=== PATIENT | female | born 1930 | race Caucasian/White ===

== ENCOUNTER → 2017-04-14 | Outpatient (CLI) | payer OTHER ==
[~2017-04-14] MED LIST: B-COCAP2 PO; DABI1CAP PO; ISOS60TA25 PO; LNX125 PO; LORA-741 PO; LSN5 PO; LSX40 PO; METO50TA16 PO; MTHH1 PO; MULT-506 PO; NTRGSL/4 UT; NXM/40 PO; ONDA4TAB10 PO; SLWMEC PO
[2017-04-14 18:14] LABS: BASO % 0.7 %; BASO ABS # 0.04 K/uL (0-0.2); COMPLETE YES; EOS % 1.6 %; HEMATOCRIT 28.8 % (37-47); IG% 0.5 %; LYMPH % 23.6 %; LYMPH ABS # 1.31 K/uL (1.2-3.4); MEAN CORPUSCULAR HEMOGLOBIN 24.3 pg (25-34); MEAN CORPUSCULAR HGB CONC 31.6 g/dl (32-36); MEAN PLATELET VOLUME 10.2 fL (7.4-10.4); MONO % 15.1 %; NEUT % 58.5 %; PLATELET COUNT 219 K/uL (130-400); RED BLOOD COUNT 3.74 M/uL (4.2-5.4); WHITE BLOOD COUNT 5.56 K/uL (4.8-10.8)
[2017-04-14 18:22] LABS: ALT/SGPT 17 U/L (12-78); BLOOD UREA NITROGEN 28 mg/dl (7-18); BUN/CREATININE RATIO 23.6 (10-20); CALCIUM 8.5 mg/dl (8.5-10.1); CARBON DIOXIDE 25 mmol/L (21-32); CHLORIDE 106 mmol/L (98-107); GLUCOSE 78 mg/dl (70-99); MAGNESIUM 1.3 mg/dl (1.8-2.4); POTASSIUM 3.8 mmol/L (3.5-5.1); SODIUM 140 mmol/L (136-145)
[2017-04-14 18:33] LABS: ALB/GLOB RATIO 0.7 (0.9-2); ALKALINE PHOSPHATASE 65 U/L (45-117); AST/SGOT 25 U/L (15-37)
== END | disposition home or self-care (01) ==
LOC: C.LABSPEC 17:46
PROVIDERS: ATTEND Internal Medicine
DX: I25.10 Atherosclerotic heart disease of native coronary artery without angina pectoris (principal); R63.4 Abnormal weight loss; R53.83 Other fatigue

== ENCOUNTER → 2017-07-16 | Outpatient (CLI) | payer OTHER ==
[2017-07-16 15:17] LABS: BASO % 0.5 %; BASO ABS # 0.03 K/uL (0-0.2); COMPLETE YES; EOS % 1.4 %; HEMATOCRIT 31.7 % (37-47); IG% 0.7 %; LYMPH % 25.2 %; LYMPH ABS # 1.45 K/uL (1.2-3.4); MEAN CELL VOLUME 78.5 fL (80-100); MEAN CORPUSCULAR HGB CONC 30.6 g/dl (32-36); MEAN PLATELET VOLUME 9.6 fL (7.4-10.4); NEUT % 61.2 %; PLATELET COUNT 210 K/uL (130-400); RED BLOOD COUNT 4.04 M/uL (4.2-5.4); WHITE BLOOD COUNT 5.75 K/uL (4.8-10.8)
[2017-07-16 15:23] LABS: BLOOD UREA NITROGEN 28 mg/dl (7-18); BUN/CREATININE RATIO 24.3 (10-20); CALCIUM 8.8 mg/dl (8.5-10.1); CARBON DIOXIDE 23 mmol/L (21-32); CHLORIDE 108 mmol/L (98-107); CREATININE 1.14 mg/dl (0.60-1.20); GLUCOSE 82 mg/dl (70-99); SODIUM 140 mmol/L (136-145)
== END | disposition home or self-care (01) ==
LOC: C.LABSPEC 14:50
PROVIDERS: ATTEND Internal Medicine
DX: I48.0 Paroxysmal atrial fibrillation (principal); I25.10 Atherosclerotic heart disease of native coronary artery without angina pectoris; D64.9 Anemia, unspecified

== ENCOUNTER 2017-07-23 14:11 | Emergency (ER) | payer OTHER ==
[~2017-07-23] VITALS: Ht 152.4 cm; Wt 55.0 kg
[2017-07-23 14:13] VITALS: TEMP 36.3; Ht 152.4 cm; Wt 55.0 kg
--- NOTE | 2017-07-23 14:54 | EMERGENCY ROOM VISIT NOTE ---
History Report prepared by Everardo: Yamileth Jean Baptiste Under the Supervision of: Dr. Howard Gabriel M.D. First contact with patient: 14:19 Chief Complaint: EAR PAIN Stated Complaint: R SIDE EXTREME EAR PAIN AND FACE History of Present Illness The patient is a 86 year old female who presents to the Emergency Room with complaints of intermittent right jaw pain for the past 6 months that worsened today. Her pain radiates into her right ear and down her right jaw. She reports "piercing" pain in her right ear. Family notes that she has had this pain for about 6 months. She has an appointment with her dentist next week because she thought her pain was due to dental pain. She recently saw her PCP for these symptoms and had a negative work-up at that time. The patient reports pain with chewing and opening her jaw. She denies fever, visual changes, recent injuries, chest pain, shortness of breath, headache, and any broken teeth. She is on Coumadin. Source of History: patient, family Onset: 6 months ago Position: jaw Quality: other (piercing) Timing: intermittent, worsening Modifying Factors (Worsening): other (chewing, opening jaw) Associated Symptoms: No fevers, No headache, No chest pain, No SOB Note: Pt has pain in right ear. Review of Systems See HPI for pertinent positives & negatives. A total of 10 systems reviewed and were otherwise negative. 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 Nurse's notes were reviewed and I agree with. Family History Diabetes mellitus FH: heart disease Social History Smoking Status: Former Smoker Alcohol Use: none Drug Use: none Marital Status: Housing Status: lives alone Occupation Status: retired Current/Historical Medications Scheduled B-Complex Vitamins (Vitamin B Complex), 1 TAB PO DAILY Dabigatran Etexilate Mesylate (Pradaxa), 75 MG PO BID Digoxin (Digoxin), 0.125 MG PO MWF Furosemide (Furosemide), 40 MG PO DAILY Isosorbide Mononitrate Ext Rel (Imdur Ext Rel), 90 MG PO DAILY Lisinopril (Lisinopril), 5 MG PO DAILY Lorazepam (Ativan), 0.5 MG PO UD Magnesium Chloride (Slow-Mag Tab), 192 MG PO BID Methenamine Hippurate (Methenamine Hippurate), 1 MG PO BID Metoprolol Tartrate (Lopressor) (Lopressor), 50 MG PO BID Multivitamin (Multivitamin), 1 TABLET PO DAILY Omeprazole (Prilosec), 40 MG PO DAILY Scheduled PRN Nitroglycerin (Nitrostat), 0.4 MG UT UD PRN for Chest Pain Allergies Coded Allergies: Amoxicillin (Verified Allergy, Intermediate, RASH, 07/23/17) TOLERATED ERTAPENEM 08/2015 Sulfa Antibiotics (Verified Allergy, Unknown, unknown, 07/23/17) Homatropine (Verified Adverse Reaction, Mild, NAUSEA, 07/23/17) Hydrocodone (Verified Adverse Reaction, Mild, NAUSEA, 07/23/17) Morphine (Verified Adverse Reaction, Mild, RXN = SIGNIFICANT MS CHANGE WHEN GIVEN WITH PHENERGAN, 07/23/17) PATIENT STATES SHE CAN TAKE MORPHINE LONG NOT COMBINED WITH PHENERGAN. Promethazine (Verified Adverse Reaction, Mild, RXN = SIGNIFICANT MS CHANGES WHEN GIVEN WITH MORPHINE, 07/23/17) SIGNIFICANT MENTAL STATUS CHANGES Lorazepam (Verified Adverse Reaction, Unknown, hallucinations if exceeds prescribed dosage, 07/23/17) Physical Exam Vital Signs Date Time Temp Pulse Resp B/P (MAP) Pulse Ox O2 Delivery O2 Flow Rate FiO2 07/23/17 16:45 65 18 98/52 97 07/23/17 16:15 65 18 98/52 97 Room Air 07/23/17 14:13 36.3 109 18 91/56 97 Room Air Physical Exam General: Non-ill appearing older female in no acute distress. HEENT: Normal cephalic atraumatic. Pupils are equal round and reactive to light. Extraocular movements are intact. Oropharynx is pink with moist mucous membranes. poor dentition, no teeth in the right lower jaw, right upper jaw with a partial plate, no swelling or fluctuance. Mild tenderness to palpation along the angle of the right jaw. No swelling of the mouth lips or tongue. Neck: Supple with a midline trachea. No meningeal signs or stiffness, no JVD or bruits. No Stridor. Chest: Clear to auscultation bilaterally. No wheezes or rhonchi. No increased work of breathing. Heart: regular rate and rhythm. Abdomen: Soft nontender, nondistended without rebound guarding or rigidity. Extremities: No cyanosis clubbing or edema. No calf tenderness or assymetry Spine/Back. Non tender to palpation. No CVA tenderness Skin: Good turgor without rashes. Neurologic exam: Cranial nerves two through 12 are intact. Motor and sensation are intact and symmetrical throughout. Medical Decision & Procedures ER Provider Diagnostic Interpretation: Radiology results as stated below per my review and radiologist interpretation: CT SOFT TISSUE NECK WITH CT DOSE: 161.63 mGy.cm CLINICAL HISTORY: Neck pain. Possible parotid gland abscess. TECHNIQUE: Helical images were acquired during intravenous administration of 72 cc of Optiray 320. A dose lowering technique was utilized adhering to the principles of ALARA. COMPARISON STUDY: None. FINDINGS: The visualized portions of the lung apices reveal tree-in-bud opacities within the left apex, likely inflammatory/postinflammatory. There are areas of apical interstitial scarring. No thyroid masses are visualized. No salivary gland masses are visualized. There are no pathologically enlarged cervical lymph nodes. No necrotic nodes are evident. There are no fluid collections suspicious for abscess. There is no evidence of airway compromise. No mucosal space masses are visualized. Multiple dental caries are visualized. There is atherosclerotic carotid disease IMPRESSION: 1. No evidence of pathologic adenopathy 2. No evidence of abscess 3. No evidence of airway compromise Electronically signed by: Jonathan Granados M.D. 07/23/2017 3:56 PM Dictated Date/Time: 07/23/2017 3:51 PM Laboratory Results 07/23/17 15:08 Red Blood Count 4.73, Mean Corpuscular Volume 78.2, Mean Corpuscular Hemoglobin 25.4, Mean Corpuscular Hemoglobin Concent 32.4, Mean Platelet Volume 9.7, Neutrophils (%) (Auto) 69.4, Lymphocytes (%) (Auto) 22.3, Monocytes (%) (Auto) 6.3, Eosinophils (%) (Auto) 0.8, Basophils (%) (Auto) 0.6, Neutrophils # (Auto) 4.30, Lymphocytes # (Auto) 1.38, Monocytes # (Auto) 0.39, Eosinophils # (Auto) 0.05, Basophils # (Auto) 0.04 07/23/17 15:08 07/23/17 16:13 Test 07/23/17 15:08 07/23/17 15:15 07/23/17 16:13 White Blood Count 6.20 K/uL (4.8-10.8) Red Blood Count 4.73 M/uL (4.2-5.4) Hemoglobin 12.0 g/dL (12.0-16.0) Hematocrit 37.0 % (37-47) Mean Corpuscular Volume 78.2 fL (80-100) Mean Corpuscular Hemoglobin 25.4 pg (25-34) Mean Corpuscular Hemoglobin Concent 32.4 g/dl (32-36) Platelet Count 238 K/uL (130-400) Mean Platelet Volume 9.7 fL (7.4-10.4) Neutrophils (%) (Auto) 69.4 % Lymphocytes (%) (Auto) 22.3 % Monocytes (%) (Auto) 6.3 % Eosinophils (%) (Auto) 0.8 % Basophils (%) (Auto) 0.6 % Neutrophils # (Auto) 4.30 K/uL (1.4-6.5) Lymphocytes # (Auto) 1.38 K/uL (1.2-3.4) Monocytes # (Auto) 0.39 K/uL (0.11-0.59) Eosinophils # (Auto) 0.05 K/uL (0-0.5) Basophils # (Auto) 0.04 K/uL (0-0.2) RDW Standard Deviation 47.4 fL (36.4-46.3) RDW Coefficient of Variation 16.5 % (11.5-14.5) Immature Granulocyte % (Auto) 0.6 % Immature Granulocyte # (Auto) 0.04 K/uL (0.00-0.02) Prothrombin Time 16.0 SECONDS (9.0-12.0) Prothromb Time International Ratio 1.5 (0.9-1.1) Activated Partial Thromboplast Time 65.3 SECONDS (21.0-31.0) Partial Thromboplastin Ratio 2.5 Est Creatinine Clear Calc Drug Dose 18.5 ml/min Estimated GFR () 31.6 Estimated GFR (Non- 27.2 BUN/Creatinine Ratio 21.7 (10-20) Calcium Level 9.4 mg/dl (8.5-10.1) Total Bilirubin 0.4 mg/dl (0.2-1) Alanine Aminotransferase (ALT/SGPT) 20 U/L (12-78) Alkaline Phosphatase 80 U/L (45-117) Troponin I < 0.015 ng/ml (0-0.045) Total Protein 9.1 gm/dl (6.4-8.2) Albumin 3.7 gm/dl (3.4-5.0) Lipase 411 U/L (73-393) Bedside Hemoglobin 13.6 g/dl (12.0-16.0) Bedside Hematocrit 40 % (37-47) Bedside Sodium 140 mEq/L (135-144) Bedside Potassium 4.6 mEq/L (3.3-5.0) Bedside Chloride 108 mEq/L (101-112) Bedside Total CO2 25 mEq/l (24-31) Anion Gap 13.0 mmol/L (16-25) Bedside Blood Urea Nitrogen 42 mg/dl (7-18) Bedside Creatinine 1.6 mg/dl (0.6-1.3) Bedside Glucose (other) 91 mg/dl (70-99) Bedside Ionized Calcium (Gume) 1.13 mmol/l (1.12-1.32) Direct Bilirubin < 0.1 mg/dl (0-0.2) Aspartate Amino Transf (AST/SGOT) 20 U/L (15-37) Laboratory studies as stated above per my review. ECG Indication: other Rate (beats per minute): 61 Rhythm: atrial fibrillation Findings: nonspecific-ST abn, left axis deviation Comparison ECG Date: 05/15/2016 Change: Rate has decreased otherwise no changes. ED Course 1419: Past medical records reviewed. The patient was evaluated in room C6, and a complete history and physical examination were performed. 1634: I reassessed the patient at this time. She is feeling better and resting comfortably. I discussed the results and treatment plan with the patient. I answered all pertaining questions that she had. She expressed understanding and verbalized agreement. The patient will be discharged home. Medical Decision Differentials include, but are not limited to; abscess, dental abnormality, parotid gland disease, coronary disease, electrolyte or metabolic abnormality. His patient comes in as described above. She has had jaw pain that has been getting worse It hurts along her TMJ joint. She has no obvious redness or swelling. She is edentulous in that area. She does have a partial plate on the top jaw. The floor of mouth is soft. She has no fever or anything to suggest abscess clinically. She's had no chest pain. It is clearly reproducible. I do not see any drainage or redness over the parotid gland. IV access established, EKG and blood work was obtained. I also did a CAT scan which the radiologist suggested using IV contrast. The patient's had contrast before without difficulties. She has no white count or fever to suggest infection. Her symptoms are reproducible and do not suggest cardiac and her EKG is unchanged and she has a normal troponin. She does have a mildly elevated creatinine of 1.6 this may be hydrationally related to her hemoglobin was also mildly elevated encouraged to drink plenty of fluids. CAT scan does not show any abscess or acute abnormality. She should rest and drink plenty of fluids. use Tylenol but do not exceed one extra strength or 2 regular strength every 6 hours based on her body weight. She should return if: increasing pain, worsening of symptoms, fever chills, any new problems or concerns. She was happy with plan and she was discharged to home. Medication Reconcilliation Current Medication List: was personally reviewed by me Blood Pressure Screening Patient's blood pressure: Normal blood pressure Impression Primary Impression: Jaw pain Scribe Attestation The scribe's documentation has been prepared under my direction and personally reviewed by me in its entirety. I confirm that the note above accurately reflects all work, treatment, procedures, and medical decision making performed by me. Departure Information Dispostion Home / Self-Care Referrals Joao Monk M.D. (PCP) Forms HOME CARE DOCUMENTATION FORM, IMPORTANT VISIT INFORMATION, WORK / SCHOOL INSTRUCTIONS Patient Instructions My [facility] Additional Instructions Rest. Drink plenty of fluids. May use Tylenol/acetaminophen, can take one extra strength 500 mg or 2 regular strength(325 mg each) every 6 hours. Do not exceed this dosing regimen. Do not take with any other medications that contain Tylenol/acetaminophen Return if: Increasing pain, fever or chills, worsening of symptoms, shortness of breath, any new problems or concerns Keep your appointment with your dentist and also follow-up with Dr. Jamison this coming week
[2017-07-23] MEDS ORDERED: OMEP40CA41 PO (14:55)
[2017-07-23] MEDS ORDERED: B-COTAB18 PO (14:55)
[2017-07-23] MEDS ORDERED: OPTIRAY 320 IV PRN (15:15)
[2017-07-23 15:25] LABS: BASO % 0.6 %; BASO ABS # 0.04 K/uL (0-0.2); COMPLETE YES; EOS % 0.8 %; IG% 0.6 %; LYMPH % 22.3 %; LYMPH ABS # 1.38 K/uL (1.2-3.4); MEAN CELL VOLUME 78.2 fL (80-100); MEAN CORPUSCULAR HEMOGLOBIN 25.4 pg (25-34); MEAN CORPUSCULAR HGB CONC 32.4 g/dl (32-36); MEAN PLATELET VOLUME 9.7 fL (7.4-10.4); MONO % 6.3 %; NEUT % 69.4 %; PLATELET COUNT 238 K/uL (130-400); RED BLOOD COUNT 4.73 M/uL (4.2-5.4)
[2017-07-23 15:27] LABS: ISTAT CREATININE 1.6 mg/dl (0.6-1.3); ISTAT HEMOGLOBIN 13.6 g/dl (12.0-16.0); ISTAT IONIZED CALCIUM 1.13 mmol/l (1.12-1.32)
[2017-07-23 15:39] LABS: INR 1.5 (0.9-1.1); PARTIAL THROMBOPLASTIN RATIO 2.5
--- NOTE | 2017-07-23 15:58 | DIAGNOSTIC IMAGING REPORT ---
CT SOFT TISSUE NECK WITH CT DOSE: 161.63 mGy.cm CLINICAL HISTORY: Neck pain. Possible parotid gland abscess. TECHNIQUE: Helical images were acquired during intravenous administration of 72 cc of Optiray 320. A dose lowering technique was utilized adhering to the principles of ALARA. COMPARISON STUDY: None. FINDINGS: The visualized portions of the lung apices reveal tree-in-bud opacities within the left apex, likely inflammatory/postinflammatory. There are areas of apical interstitial scarring. No thyroid masses are visualized. No salivary gland masses are visualized. There are no pathologically enlarged cervical lymph nodes. No necrotic nodes are evident. There are no fluid collections suspicious for abscess. There is no evidence of airway compromise. No mucosal space masses are visualized. Multiple dental caries are visualized. There is atherosclerotic carotid disease IMPRESSION: 1. No evidence of pathologic adenopathy 2. No evidence of abscess 3. No evidence of airway compromise Electronically signed by: Jonathan Granados M.D. 07/23/2017 3:56 PM Dictated Date/Time: 07/23/2017 3:51 PM
[2017-07-23 15:59] LABS: ALKALINE PHOSPHATASE 80 U/L (45-117); ALT/SGPT 20 U/L (12-78); BLOOD UREA NITROGEN 36 mg/dl (7-18); BUN/CREATININE RATIO 21.7 (10-20); CALCIUM 9.4 mg/dl (8.5-10.1); CARBON DIOXIDE 23 mmol/L (21-32); CHLORIDE 106 mmol/L (98-107); CREATININE 1.67 mg/dl (0.60-1.20); GLUCOSE 91 mg/dl (70-99); SODIUM 137 mmol/L (136-145)
[2017-07-23 16:44] LABS: POTASSIUM 4.1 mmol/L (3.5-5.1)
[2017-07-23 16:45] VITALS: BP 98/52; PULSE 65; O2SAT 97
[2017-07-23 16:49] LABS: AST/SGOT 20 U/L (15-37)
== END 2017-07-23 16:46 | disposition home or self-care (01) ==
LOC: C.EDB 14:13 → C.EDC 16:46
DX: R68.84 Jaw pain (principal); D64.9 Anemia, unspecified; I25.10 Atherosclerotic heart disease of native coronary artery without angina pectoris; I48.91 Unspecified atrial fibrillation; E78.5 Hyperlipidemia, unspecified; I10 Essential (primary) hypertension; D49.3 Neoplasm of unspecified behavior of breast; D49.0 Neoplasm of unspecified behavior of digestive system; Z83.3 Family history of diabetes mellitus; Z82.49 Family history of ischemic heart disease and other diseases of the circulatory system

== ENCOUNTER 2017-08-08 12:02 | Inpatient (IN) | payer OTHER ==
[~2017-08-08] VITALS: Ht 147.3 cm; Wt 38.0 kg
[~2017-08-08 12:02] MED LIST changes: -B-COCAP2 PO; +B-COTAB18 PO; -NXM/40 PO; +OMEP40CA41 PO; -ONDA4TAB10 PO
--- NOTE | 2017-08-08 12:45 | EMERGENCY ROOM VISIT NOTE ---
History Report prepared by Everardo: Sanket Plascencia Under the Supervision of: Dr. Yosef Sparks M.D. First contact with patient: 12:23 Chief Complaint: DEHYDRATION Stated Complaint: DEHYDRATION History of Present Illness The patient is a 86 year old female who presents to the Emergency Room with complaints of dehydration that began a couple of weeks ago. Over this time, the patient has been having difficulty taking her medications, drinking fluids, and eating foods. She states that she just does not have an appetite. Along with this, she has been having multiple episodes of diarrhea having to go almost every half hour. They have been taking anti-diarrheal medications. She has been experiencing right sided jaw pain that she states is unrelated to her difficulty consuming products. Last week, she had two teeth removed by her Dentist to try to help alleviate her jaw pain, but she is still experiencing it. She denies any feelings of depression. She denies any pain in her body. Eating does not exacerbate her jaw pain. She is on Pradaxa for her atrial fibrillation. Source of History: patient Onset: a couple of weeks ago Position: other (Global) Symptom Intensity: moderate Quality: other (Dehydration) Timing: constant Associated Symptoms: + diarrhea, No headache, No neck pain, No chest pain, No abdominal pain, No back pain Note: She denies any feelings of depression. Review of Systems See HPI for pertinent positives & negatives. A total of 10 systems reviewed and were otherwise negative. 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 (19) TIA (transient ischemic attack) (20) UTI (urinary tract infection) Surgical Problems: (1) History of cholecystectomy Family History Diabetes mellitus FH: heart disease Social History Smoking Status: Former Smoker Alcohol Use: none Drug Use: none Marital Status: Housing Status: lives alone Occupation Status: retired Current/Historical Medications Scheduled B-Complex Vitamins (Vitamin B Complex), 1 TAB PO DAILY Dabigatran Etexilate Mesylate (Pradaxa), 75 MG PO BID Digoxin (Digoxin), 0.125 MG PO MWF Furosemide (Furosemide), 40 MG PO DAILY Isosorbide Mononitrate Ext Rel (Imdur Ext Rel), 90 MG PO DAILY Lisinopril (Lisinopril), 5 MG PO DAILY Lorazepam (Ativan), 0.5 MG PO UD Magnesium Chloride (Slow-Mag Tab), 192 MG PO BID Methenamine Hippurate (Methenamine Hippurate), 1 MG PO BID Metoprolol Tartrate (Lopressor) (Lopressor), 50 MG PO BID Multivitamin (Multivitamin), 1 TABLET PO DAILY Omeprazole (Prilosec), 40 MG PO DAILY Scheduled PRN Nitroglycerin (Nitrostat), 0.4 MG UT UD PRN for Chest Pain Allergies Coded Allergies: Amoxicillin (Verified Allergy, Intermediate, RASH, 08/08/17) TOLERATED ERTAPENEM 08/2015 Sulfa Antibiotics (Verified Allergy, Unknown, unknown, 08/08/17) Homatropine (Verified Adverse Reaction, Mild, NAUSEA, 08/08/17) Hydrocodone (Verified Adverse Reaction, Mild, NAUSEA, 08/08/17) Morphine (Verified Adverse Reaction, Mild, RXN = SIGNIFICANT MS CHANGE WHEN GIVEN WITH PHENERGAN, 08/08/17) PATIENT STATES SHE CAN TAKE MORPHINE LONG NOT COMBINED WITH PHENERGAN. Promethazine (Verified Adverse Reaction, Mild, RXN = SIGNIFICANT MS CHANGES WHEN GIVEN WITH MORPHINE, 08/08/17) SIGNIFICANT MENTAL STATUS CHANGES Lorazepam (Verified Adverse Reaction, Unknown, hallucinations if exceeds prescribed dosage, 08/08/17) Physical Exam Vital Signs Date Time Temp Pulse Resp B/P (MAP) Pulse Ox O2 Delivery O2 Flow Rate FiO2 08/08/17 17:40 60 22 96 08/08/17 17:30 120/62 08/08/17 17:10 59 18 99 08/08/17 17:05 54 18 93 08/08/17 17:00 128/65 08/08/17 16:35 60 17 97 08/08/17 16:30 130/71 08/08/17 16:12 54 20 93 08/08/17 16:00 113/67 08/08/17 15:42 56 19 99 08/08/17 15:37 65 21 99 08/08/17 15:31 125/64 08/08/17 15:25 130/58 08/08/17 13:37 55 22 95 08/08/17 13:32 56 18 98 08/08/17 13:31 50 08/08/17 13:30 114/56 08/08/17 13:29 109/56 08/08/17 13:26 121/64 08/08/17 13:23 51 20 115/53 98 Room Air 59 103/52 68 121/64 08/08/17 13:23 98 Room Air 08/08/17 13:23 98 Room Air 08/08/17 12:07 36.3 55 20 108/70 98 Room Air Physical Exam GENERAL: Patient is a healthy-appearing well-nourished female. HEAD: Normocephalic atraumatic EYES: Ocular movements intact pupils equal and react to light OROPHARYNX mucous membranes are dry no exudates present no erythema or edema present NECK: Supple no nuchal rigidity CHEST: Good equal expansion LUNGS: Clear and equal to auscultation CARDIAC: Normal S1 and S2 ABDOMEN: Soft nontender no guarding BACK: No CVA tenderness EXTREMITIES: No pain upon palpation normal muscle strength in all groups no clubbing cyanosis or edema NEURO: Patient is following commands and answering questions appropriately. Alert and oriented x3 Cranial Nerves 2-12 grossly intact Medical Decision & Procedures ER Provider Diagnostic Interpretation: Radiology results as stated below per my review and radiologist interpretation: CT OF THE HEAD WITHOUT CONTRAST CLINICAL HISTORY: Altered mental status. COMPARISON STUDY: Head CT November 08, 2014. TECHNIQUE: Helical axial images of the head were obtained without IV contrast. Automated exposure control was utilized for the study. A dose lowering technique was utilized adhering to the principles of ALARA. FINDINGS: No acute intracranial hemorrhage, midline shift or mass effect is present. Ventricular system is stable. Basilar cisterns are patent. There are no extra axial collections. White matter hypodensities suggest moderate small vessel disease. There are no findings to suggest acute dural sinus thrombosis or acute territorial infarct. There is extensive intracranial vascular calcification. There are no significant calvarial abnormalities. Visualized portions of the sinuses and mastoid air cells are clear. IMPRESSION: No acute intracranial findings. Electronically signed by: Aaron Hackett M.D. 08/08/2017 2:38 PM Dictated Date/Time: 08/08/2017 2:35 PM CHEST ONE VIEW PORTABLE CLINICAL HISTORY: Altered mental status. COMPARISON STUDY: Chest radiograph May 15, 2016. FINDINGS: Left breast surgical clips are noted. There are cholecystectomy clips. There is no pneumothorax or pleural effusion. Lower lung predominant interstitial thickening is noted. There is no evidence of pulmonary edema. Cardiomediastinal silhouette is stable. Mild right lower lung opacity likely reflects interstitial lung disease. IMPRESSION: Diffuse interstitial thickening suggestive of interstitial lung disease with pulmonary fibrosis. No superimposed consolidation. Electronically signed by: Aaron Hackett M.D. 08/08/2017 1:44 PM Dictated Date/Time: 08/08/2017 1:[address] OF THE ABDOMEN AND PELVIS WITH CONTRAST CLINICAL HISTORY: Diarrhea. Altered mental status. COMPARISON STUDY: CT of the abdomen and pelvis May 15, 2016 and abdominal series May 16, 2016. TECHNIQUE: Following IV administration of 80 mL of Optiray-320, axial images of the abdomen and pelvis were obtained from the lung bases to the proximal femurs. Images were reviewed in the axial, sagittal, and coronal planes. IV contrast was administered without complication. A dose lowering technique was utilized adhering to the principles of ALARA. CT DOSE: 782.99 mGy.cm FINDINGS: Visualized portions of the lower chest demonstrate moderate cardiomegaly with subpleural reticulation and groundglass opacities which suggest interstitial lung disease. No pneumatosis, free air or portal venous gas is present. Biliary and pancreatic ductal dilatation is similar to prior exams. A 1.5 cm water attenuation pancreas body lesion is unchanged. There is no peripancreatic infiltration. No new pancreatic lesions are identified. Several hepatic cysts are noted. Marked right renal atrophy is again noted. There are several bilateral renal cysts. Calcifications within each renal sinus likely reflect vascular calcifications although small renal calculi would be difficult to exclude. There is no hydronephrosis. There are no ureteral calculi. There is no evidence for a bowel obstruction. There are fluid-filled right lower quadrant and pelvic small bowel loops without transition point to suggest a bowel obstruction. Sigmoid anastomosis is noted. Pelvic infiltration is noted. This is been shown on prior exams. There is gas within the bladder. Moderate bladder wall thickening is noted. Old L1 and L5 compression fractures are noted. There is extensive atherosclerotic plaque of the abdominal aorta. There is mild dilatation of the distal descending thoracic aorta which measures 3 cm. The abdominal aorta is ectatic. There is extensive atherosclerotic plaque of the major branch vessels. IMPRESSION: 1. Mildly dilated fluid-filled small bowel loops within the right lower quadrant and pelvis without transition point to strongly suggest a small bowel obstruction. 2. Mild pelvic infiltration which has been shown on prior exams and may be chronic. 3. Gas within the bladder which may be related to recent instrumentation. Moderate bladder wall thickening. The findings could be correlated with urinalysis to exclude cystitis. 4. No change in biliary ductal dilatation which is likely related to prior cholecystectomy. Electronically signed by: Aaron Hackett M.D. 08/08/2017 3:00 PM Dictated Date/Time: 08/08/2017 2:46 PM Laboratory Results 08/08/17 13:15 Red Blood Count 4.61, Mean Corpuscular Volume 77.7, Mean Corpuscular Hemoglobin 24.9, Mean Corpuscular Hemoglobin Concent 32.1, Mean Platelet Volume 10.0, Neutrophils (%) (Auto) 71.8, Lymphocytes (%) (Auto) 19.3, Monocytes (%) (Auto) 7.8, Eosinophils (%) (Auto) 0.4, Basophils (%) (Auto) 0.4, Neutrophils # (Auto) 5.06, Lymphocytes # (Auto) 1.36, Monocytes # (Auto) 0.55, Eosinophils # (Auto) 0.03, Basophils # (Auto) 0.03 08/08/17 13:15 Test 08/08/17 13:10 08/08/17 13:15 08/08/17 13:20 08/08/17 15:20 Influenza Type A (RT-PCR) Neg for Influ A (NEG) Influenza Type A Antigen Neg for Influ A (NEG) Influenza Type B Antigen Neg for Influ B (NEG) Influenza Type B (RT-PCR) Neg for Influ B (NEG) White Blood Count 7.05 K/uL (4.8-10.8) Red Blood Count 4.61 M/uL (4.2-5.4) Hemoglobin 11.5 g/dL (12.0-16.0) Hematocrit 35.8 % (37-47) Mean Corpuscular Volume 77.7 fL (80-100) Mean Corpuscular Hemoglobin 24.9 pg (25-34) Mean Corpuscular Hemoglobin Concent 32.1 g/dl (32-36) Platelet Count 225 K/uL (130-400) Mean Platelet Volume 10.0 fL (7.4-10.4) Neutrophils (%) (Auto) 71.8 % Lymphocytes (%) (Auto) 19.3 % Monocytes (%) (Auto) 7.8 % Eosinophils (%) (Auto) 0.4 % Basophils (%) (Auto) 0.4 % Neutrophils # (Auto) 5.06 K/uL (1.4-6.5) Lymphocytes # (Auto) 1.36 K/uL (1.2-3.4) Monocytes # (Auto) 0.55 K/uL (0.11-0.59) Eosinophils # (Auto) 0.03 K/uL (0-0.5) Basophils # (Auto) 0.03 K/uL (0-0.2) RDW Standard Deviation 48.8 fL (36.4-46.3) RDW Coefficient of Variation 17.5 % (11.5-14.5) Immature Granulocyte % (Auto) 0.3 % Immature Granulocyte # (Auto) 0.02 K/uL (0.00-0.02) Est Creatinine Clear Calc Drug Dose 13.8 ml/min Estimated GFR () 30.5 Estimated GFR (Non- 26.3 BUN/Creatinine Ratio 25.1 (10-20) Calcium Level 9.0 mg/dl (8.5-10.1) Total Bilirubin 0.3 mg/dl (0.2-1) Direct Bilirubin < 0.1 mg/dl (0-0.2) Aspartate Amino Transf (AST/SGOT) 22 U/L (15-37) Alanine Aminotransferase (ALT/SGPT) 14 U/L (12-78) Alkaline Phosphatase 74 U/L (45-117) Total Creatine Kinase 40 U/L (26-192) Creatine Kinase MB 1.3 ng/ml (0.5-3.6) Creatine Kinase MB Ratio 3.3 (0-3.0) Troponin I 0.023 ng/ml (0-0.045) Total Protein 7.9 gm/dl (6.4-8.2) Albumin 3.3 gm/dl (3.4-5.0) Thyroid Stimulating Hormone (TSH) 1.550 uIu/ml (0.300-4.500) Bedside Hemoglobin 12.2 g/dl (12.0-16.0) Bedside Hematocrit 36 % (37-47) Bedside Sodium 137 mEq/L (135-144) Bedside Potassium 4.6 mEq/L (3.3-5.0) Bedside Chloride 110 mEq/L (101-112) Bedside Total CO2 19 mEq/l (24-31) Anion Gap 14.0 mmol/L (16-25) Bedside Blood Urea Nitrogen 45 mg/dl (7-18) Bedside Creatinine 1.8 mg/dl (0.6-1.3) Bedside Glucose (other) 88 mg/dl (70-99) Bedside Ionized Calcium (Gume) 1.27 mmol/l (1.12-1.32) Urine Color YELLOW Urine Appearance CLOUDY (CLEAR) Urine pH 5.0 (4.5-7.5) Urine Specific [place] 1.024 (1.000-1.030) Urine Protein NEG (NEG) Urine Glucose (UA) NEG (NEG) Urine Ketones NEG (NEG) Urine Occult Blood TRACE (NEG) Urine Nitrite POS (NEG) Urine Bilirubin NEG (NEG) Urine Urobilinogen NEG (NEG) Urine Leukocyte Esterase MODERATE (NEG) Urine WBC (Auto) >30 /hpf (0-5) Urine RBC (Auto) 0-4 /hpf (0-4) Urine Hyaline Casts (Auto) 1-5 /lpf (0-5) Urine Epithelial Cells (Auto) 5-10 /lpf (0-5) Urine Bacteria (Auto) 3+ (NEG) Labs reviewed by ED physician. Medications Administered Medications (Trade) Dose Ordered Sig/Nicolás Route Start Time Stop Time Status Last Admin Dose Admin Sodium Chloride 500 ml @ 999 mls/hr Q31M STAT IV 08/08/17 12:54 08/08/17 13:24 DC 08/08/17 13:30 999 MLS/HR Ceftriaxone Sodium (Rocephin Inj) 1 gm NOW STAT IV 08/08/17 16:19 08/08/17 16:21 DC 08/08/17 17:05 1 GM ECG Indication: weakness Rate (beats per minute): 59 Rhythm: atrial fibrillation Findings: no acute ischemic change, no ectopy, other (slow ventricular response ) Comparison ECG Date: 23 Jul 2017 Change: no significant change ED Course 1223: Past medical records reviewed. The patient was evaluated in room C1. A complete history and physical examination was performed. 1254: Ordered Sodium Chloride 500 ml @ 99 mls/hr IV 1619: Ordered Rocephin Inj 1 gm IV 1638: Upon reexamination the patient is resting. I discussed results and treatment plan with the patient. She verbalizes agreement and understanding. I spoke with Dr. Bonilla from the [facility]. The patient will be evaluated for further management. Medical Decision Differential diagnosis: Etiologies such as metabolic, infection, hypo/hyperglycemia, electrolyte abnormalities, cardiac sources, intracerebral event, toxicologic, neurologic, as well as others were entertained. This is an 86-year-old female who presents emergency department complaining of dehydration. The patient apparently has not been eating well and hasn't had a general decline in health over the past month. The patient lives by herself. She has a bump in her BUN and creatinine and does appear to have a urinary tract infection. CAT scan is concerning for small bowel obstruction however the patient is having no pain and no vomiting. She was having episodes of diarrhea however was unable to provide a stool sample while in the emergency department. I did discuss the case with the hospitalist service who agreed to admit the patient. Patient and family were in agreement with the treatment plan. Medication Reconcilliation Current Medication List: was personally reviewed by me Blood Pressure Screening Patient's blood pressure: Normal blood pressure Blood pressure disposition: Did not require urgent referral Consults Time Called: 1635 Consulting Physician: Dr. Bonilla - [facility] [place] Returned Call: [phone] I discussed the patient's case with Dr. Bonilla, he has agreed to evaluate the patient for further management and care. Impression Primary Impression: SBO (small bowel obstruction) Additional Impressions: Dehydration UTI (urinary tract infection) Scribe Attestation The scribe's documentation has been prepared under my direction and personally reviewed by me in its entirety. I confirm that the note above accurately reflects all work, treatment, procedures, and medical decision making performed by me. Departure Information Dispostion Being Evaluated By Hospitalist Referrals Joao Monk M.D. (PCP) Patient Instructions My [facility] Problem Qualifiers Additional Impressions: UTI (urinary tract infection) Urinary tract infection type: acute cystitis Hematuria presence: with hematuria Qualified Codes: N30.01 - Acute cystitis with hematuria
[2017-08-08] MEDS ORDERED: SODIUM CHLORIDE 0.9% 500ML 500 ML IV STA (12:54)
[2017-08-08] MEDS ORDERED: OPTIRAY 320 IV PRN (13:15)
[2017-08-08 13:33] LABS: ISTAT CREATININE 1.8 mg/dl (0.6-1.3); ISTAT HEMOGLOBIN 12.2 g/dl (12.0-16.0); ISTAT IONIZED CALCIUM 1.27 mmol/l (1.12-1.32)
--- NOTE | 2017-08-08 13:45 | DIAGNOSTIC IMAGING REPORT ---
CHEST ONE VIEW PORTABLE CLINICAL HISTORY: Altered mental status. COMPARISON STUDY: Chest radiograph May 15, 2016. FINDINGS: Left breast surgical clips are noted. There are cholecystectomy clips. There is no pneumothorax or pleural effusion. Lower lung predominant interstitial thickening is noted. There is no evidence of pulmonary edema. Cardiomediastinal silhouette is stable. Mild right lower lung opacity likely reflects interstitial lung disease. IMPRESSION: Diffuse interstitial thickening suggestive of interstitial lung disease with pulmonary fibrosis. No superimposed consolidation. Electronically signed by: Aaron Hackett M.D. 08/08/2017 1:44 PM Dictated Date/Time: 08/08/2017 1:42 PM
[2017-08-08 13:46] LABS: BASO % 0.4 %; BASO ABS # 0.03 K/uL (0-0.2); COMPLETE YES; EOS % 0.4 %; HEMATOCRIT 35.8 % (37-47); IG% 0.3 %; LYMPH % 19.3 %; LYMPH ABS # 1.36 K/uL (1.2-3.4); MEAN CELL VOLUME 77.7 fL (80-100); MEAN CORPUSCULAR HEMOGLOBIN 24.9 pg (25-34); MEAN CORPUSCULAR HGB CONC 32.1 g/dl (32-36); MONO % 7.8 %; NEUT % 71.8 %; PLATELET COUNT 225 K/uL (130-400); RED BLOOD COUNT 4.61 M/uL (4.2-5.4); WHITE BLOOD COUNT 7.05 K/uL (4.8-10.8)
[2017-08-08 13:52] LABS: ALT/SGPT 14 U/L (12-78); BLOOD UREA NITROGEN 43 mg/dl (7-18); BUN/CREATININE RATIO 25.1 (10-20); CARBON DIOXIDE 16 mmol/L (21-32); CHLORIDE 107 mmol/L (98-107); CREATININE 1.72 mg/dl (0.60-1.20); GLUCOSE 84 mg/dl (70-99); POTASSIUM 4.7 mmol/L (3.5-5.1); SODIUM 133 mmol/L (136-145)
[2017-08-08 14:03] LABS: ALKALINE PHOSPHATASE 74 U/L (45-117); AST/SGOT 22 U/L (15-37); CKMB/CK RATIO 3.3 (0-3.0)
--- NOTE | 2017-08-08 14:39 | DIAGNOSTIC IMAGING REPORT ---
CT OF THE HEAD WITHOUT CONTRAST CLINICAL HISTORY: Altered mental status. COMPARISON STUDY: Head CT November 08, 2014. TECHNIQUE: Helical axial images of the head were obtained without IV contrast. Automated exposure control was utilized for the study. A dose lowering technique was utilized adhering to the principles of ALARA. FINDINGS: No acute intracranial hemorrhage, midline shift or mass effect is present. Ventricular system is stable. Basilar cisterns are patent. There are no extra axial collections. White matter hypodensities suggest moderate small vessel disease. There are no findings to suggest acute dural sinus thrombosis or acute territorial infarct. There is extensive intracranial vascular calcification. There are no significant calvarial abnormalities. Visualized portions of the sinuses and mastoid air cells are clear. IMPRESSION: No acute intracranial findings. Electronically signed by: Aaron Hackett M.D. 08/08/2017 2:38 PM Dictated Date/Time: 08/08/2017 2:35 PM
--- NOTE | 2017-08-08 15:01 | DIAGNOSTIC IMAGING REPORT ---
CT OF THE ABDOMEN AND PELVIS WITH CONTRAST CLINICAL HISTORY: Diarrhea. Altered mental status. COMPARISON STUDY: CT of the abdomen and pelvis May 15, 2016 and abdominal series May 16, 2016. TECHNIQUE: Following IV administration of 80 mL of Optiray-320, axial images of the abdomen and pelvis were obtained from the lung bases to the proximal femurs. Images were reviewed in the axial, sagittal, and coronal planes. IV contrast was administered without complication. A dose lowering technique was utilized adhering to the principles of ALARA. CT DOSE: 782.99 mGy.cm FINDINGS: Visualized portions of the lower chest demonstrate moderate cardiomegaly with subpleural reticulation and groundglass opacities which suggest interstitial lung disease. No pneumatosis, free air or portal venous gas is present. Biliary and pancreatic ductal dilatation is similar to prior exams. A 1.5 cm water attenuation pancreas body lesion is unchanged. There is no peripancreatic infiltration. No new pancreatic lesions are identified. Several hepatic cysts are noted. Marked right renal atrophy is again noted. There are several bilateral renal cysts. Calcifications within each renal sinus likely reflect vascular calcifications although small renal calculi would be difficult to exclude. There is no hydronephrosis. There are no ureteral calculi. There is no evidence for a bowel obstruction. There are fluid-filled right lower quadrant and pelvic small bowel loops without transition point to suggest a bowel obstruction. Sigmoid anastomosis is noted. Pelvic infiltration is noted. This is been shown on prior exams. There is gas within the bladder. Moderate bladder wall thickening is noted. Old L1 and L5 compression fractures are noted. There is extensive atherosclerotic plaque of the abdominal aorta. There is mild dilatation of the distal descending thoracic aorta which measures 3 cm. The abdominal aorta is ectatic. There is extensive atherosclerotic plaque of the major branch vessels. IMPRESSION: 1. Mildly dilated fluid-filled small bowel loops within the right lower quadrant and pelvis without transition point to strongly suggest a small bowel obstruction. 2. Mild pelvic infiltration which has been shown on prior exams and may be chronic. 3. Gas within the bladder which may be related to recent instrumentation. Moderate bladder wall thickening. The findings could be correlated with urinalysis to exclude cystitis. 4. No change in biliary ductal dilatation which is likely related to prior cholecystectomy. Electronically signed by: Aaron Hackett M.D. 08/08/2017 3:00 PM Dictated Date/Time: 08/08/2017 2:46 PM
[2017-08-08 15:16] LABS: INFLUENZA A PCR Neg for Influ A (NEG); INFLUENZA B PCR Neg for Influ B (NEG)
[2017-08-08 15:43] LABS: URINE APPEARANCE CLOUDY (CLEAR); URINE BILIRUBIN NEG (NEG); URINE COLOR YELLOW; URINE NITRITE POS (NEG); URINE SPECIFIC GRAVITY 1.024 (1.000-1.030); UROBILINOGEN NEG (NEG); ZZURINE CULT IF INDIC CATH YES
[2017-08-08 16:10] LABS: MANUAL MICROSCOPIC REQUIRED? NO; REVIEW REQ? NO
[2017-08-08] MEDS ORDERED: CEFTRIAXONE SOD INJ 1 GM ADDVIAL IV STA (16:19)
--- NOTE | 2017-08-08 17:31 | History and Physical ---
History & Physical Date & Time of Service: Aug 08, 2017 at 17:30 Chief Complaint: Dehydration Primary Care Physician: Joao Monk M.D. History of Present Illness Source: patient, family (daughter and granddaughter) 86 yo female presents for feeling of dehydration and decreased PO fluids over the past few days Most of the history is from the family, though patient will agree with statements and add a couple details along the way. Per family, patient has lost about 8 pounds in the past 2-3 weeks due to decreased appetite. She gets pre-made meals but just doesn't want to eat past a couple bites. Denies any N/V but has had multiple non-bloody loose stools for the past week as well. Was apparently put on an anti-diarrhea medication for a day which didn't seem to help. Denies any particular abdominal pain or discomfort. Patient has a history of colon cancer s/p resection and anastomosis with subsequent multiple SBO, most recently in 2015. Patient (and family) say that she doesn't feel like she has an obstruction at present. She says that her only current pain is related to some ongoing jaw pain which she tried to have fixed with lower jaw tooth extraction on but not much relief yet. No other acute patient concerns. Of note, patient has a history of neurogenic bladder and self-catheterizes three times a day, but she denies any present urinary concerns (dysuria, hematuria). 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 (15) TIA (transient ischemic attack) (16) UTI (urinary tract infection) - GERD - Diverticular disease - GI bleeding - Urinary retention / neurogenic bladder Surgical Problems: (1) History of cholecystectomy - Left mastectomy - Partial colectomy - AG - Salpingo-oophorectomy - Wedge resection of lung Family History Diabetes mellitus FH: heart disease Social History Smoking Status: Former Smoker (pt unsure, perhaps 30 pk/years, quit > 20 years ago) Alcohol Use: none Drug Use: none Marital Status: Occupational Status: retired Immunizations History of Influenza Vaccine: Yes Influenza Vaccine Date: Aug 01, 2012 History of Tetanus Vaccine?: Yes History of Pneumococcal: Unknown Pneumococcal Date: Aug 01, 2011 History of Hepatitis B Vaccine: Unknown Multi-Drug Resistant Organisms History of MDRO: No Allergies Coded Allergies: Amoxicillin (Verified Allergy, Intermediate, RASH, 08/08/17) TOLERATED ERTAPENEM 08/2015 Sulfa Antibiotics (Verified Allergy, Unknown, unknown, 08/08/17) Homatropine (Verified Adverse Reaction, Mild, NAUSEA, 08/08/17) Hydrocodone (Verified Adverse Reaction, Mild, NAUSEA, 08/08/17) Morphine (Verified Adverse Reaction, Mild, RXN = SIGNIFICANT MS CHANGE WHEN GIVEN WITH PHENERGAN, 08/08/17) PATIENT STATES SHE CAN TAKE MORPHINE LONG NOT COMBINED WITH PHENERGAN. Promethazine (Verified Adverse Reaction, Mild, RXN = SIGNIFICANT MS CHANGES WHEN GIVEN WITH MORPHINE, 08/08/17) SIGNIFICANT MENTAL STATUS CHANGES Lorazepam (Verified Adverse Reaction, Unknown, hallucinations if exceeds prescribed dosage, 08/08/17) Home Medications Scheduled B-Complex Vitamins (Vitamin B Complex), 1 TAB PO DAILY Dabigatran Etexilate Mesylate (Pradaxa), 75 MG PO BID Digoxin (Digoxin), 0.125 MG PO MWF Furosemide (Furosemide), 40 MG PO DAILY Isosorbide Mononitrate Ext Rel (Imdur Ext Rel), 90 MG PO DAILY Lisinopril (Lisinopril), 5 MG PO DAILY Lorazepam (Ativan), 0.5 MG PO UD Magnesium Chloride (Slow-Mag Tab), 192 MG PO BID Methenamine Hippurate (Methenamine Hippurate), 1 MG PO BID Metoprolol Tartrate (Lopressor) (Lopressor), 50 MG PO BID Multivitamin (Multivitamin), 1 TABLET PO DAILY Omeprazole (Prilosec), 40 MG PO DAILY Scheduled PRN Nitroglycerin (Nitrostat), 0.4 MG UT UD PRN for Chest Pain Review of Systems Constitutional: No fever, No chills ENT: + dental problems Respiratory: No cough, No shortness of breath Cardiovascular: No chest pain, No edema Abdomen: + diarrhea, No nausea, No vomiting Genitourinary - Female: + urinary retention, No dysuria, No urinary frequency, No hematuria Neurologic: No weakness, No numbness/tingling Endocrine: + fatigue Integumentary: No rash Physical Exam Vital Signs Date Time Temp Pulse Resp B/P (MAP) Pulse Ox O2 Delivery O2 Flow Rate FiO2 08/08/17 17:05 54 18 93 08/08/17 17:00 128/65 08/08/17 16:35 60 17 97 08/08/17 16:30 130/71 08/08/17 16:12 54 20 93 08/08/17 16:00 113/67 08/08/17 15:42 56 19 99 08/08/17 15:37 65 21 99 08/08/17 15:31 125/64 08/08/17 15:25 130/58 08/08/17 13:37 55 22 95 08/08/17 13:32 56 18 98 08/08/17 13:31 50 08/08/17 13:30 114/56 08/08/17 13:29 109/56 08/08/17 13:26 121/64 08/08/17 13:23 51 20 115/53 98 Room Air 59 103/52 68 121/64 08/08/17 13:23 98 Room Air 08/08/17 13:23 98 Room Air 08/08/17 12:07 36.3 55 20 108/70 98 Room Air General Appearance: no apparent distress, + cachetic Eyes: PERRL, EOMI ENT: pharynx normal, + pertinent finding (dry oral MM) Neck: no JVD Respiratory/Chest: lungs clear, normal breath sounds, no respiratory distress Cardiovascular: no murmur, normal peripheral pulses, + irregularly irregular ( afib on monitor, not tachycardic) Abdomen/GI: normal bowel sounds, non tender, soft, + pertinent finding (very thin habitus. old midline surgical scar) Back: + pertinent finding (cachetic. no CVA ttp (B)) Extremities/Musculoskelatal: + swelling (perhaps trace (B) distal tibial edema) Neurologic/Psych: no motor/sensory deficits (grossly), alert (answering questions quickly and easily, does not appear particularly confused at all), oriented x 3 (oriented to person, place, but not time) Skin: normal color, warm/dry Diagnostics Laboratory Results Results Past 24 Hours Test 08/08/17 13:10 08/08/17 13:15 08/08/17 13:20 08/08/17 15:20 Range/Units Influenza Type A (RT-PCR) Neg for Influ A NEG Influenza Type A Antigen Neg for Influ A NEG Influenza Type B Antigen Neg for Influ B NEG Influenza Type B (RT-PCR) Neg for Influ B NEG White Blood Count 7.05 4.8-10.8 K/uL Red Blood Count 4.61 4.2-5.4 M/uL Hemoglobin 11.5 12.0-16.0 g/dL Hematocrit 35.8 37-47 % Mean Corpuscular Volume 77.7 80-100 fL Mean Corpuscular Hemoglobin 24.9 25-34 pg Mean Corpuscular Hemoglobin Concent 32.1 32-36 g/dl Platelet Count 225 130-400 K/uL Mean Platelet Volume 10.0 7.4-10.4 fL Neutrophils (%) (Auto) 71.8 % Lymphocytes (%) (Auto) 19.3 % Monocytes (%) (Auto) 7.8 % Eosinophils (%) (Auto) 0.4 % Basophils (%) (Auto) 0.4 % Neutrophils # (Auto) 5.06 1.4-6.5 K/uL Lymphocytes # (Auto) 1.36 1.2-3.4 K/uL Monocytes # (Auto) 0.55 0.11-0.59 K/uL Eosinophils # (Auto) 0.03 0-0.5 K/uL Basophils # (Auto) 0.03 0-0.2 K/uL RDW Standard Deviation 48.8 36.4-46.3 fL RDW Coefficient of Variation 17.5 11.5-14.5 % Immature Granulocyte % (Auto) 0.3 % Immature Granulocyte # (Auto) 0.02 0.00-0.02 K/uL Sodium Level 133 136-145 mmol/L Potassium Level 4.7 3.5-5.1 mmol/L Chloride Level 107 98-107 mmol/L Carbon Dioxide Level 16 21-32 mmol/L Anion Gap 11.0 14.0 16-25 mmol/L Blood Urea Nitrogen 43 7-18 mg/dl Creatinine 1.72 0.60-1.20 mg/dl Est Creatinine Clear Calc Drug Dose 13.8 ml/min Estimated GFR () 30.5 Estimated GFR (Non- 26.3 BUN/Creatinine Ratio 25.1 10-20 Random Glucose 84 70-99 mg/dl Calcium Level 9.0 8.5-10.1 mg/dl Total Bilirubin 0.3 0.2-1 mg/dl Direct Bilirubin < 0.1 0-0.2 mg/dl Aspartate Amino Transf (AST/SGOT) 22 15-37 U/L Alanine Aminotransferase (ALT/SGPT) 14 12-78 U/L Alkaline Phosphatase 74 45-117 U/L Total Creatine Kinase 40 26-192 U/L Creatine Kinase MB 1.3 0.5-3.6 ng/ml Creatine Kinase MB Ratio 3.3 0-3.0 Troponin I 0.023 0-0.045 ng/ml Total Protein 7.9 6.4-8.2 gm/dl Albumin 3.3 3.4-5.0 gm/dl Thyroid Stimulating Hormone (TSH) 1.550 0.300-4.500 uIu/ml Bedside Hemoglobin 12.2 12.0-16.0 g/dl Bedside Hematocrit 36 37-47 % Bedside Sodium 137 135-144 mEq/L Bedside Potassium 4.6 3.3-5.0 mEq/L Bedside Chloride 110 101-112 mEq/L Bedside Total CO2 19 24-31 mEq/l Bedside Blood Urea Nitrogen 45 7-18 mg/dl Bedside Creatinine 1.8 0.6-1.3 mg/dl Bedside Glucose (other) 88 70-99 mg/dl Bedside Ionized Calcium (Gume) 1.27 1.12-1.32 mmol/l Urine Color YELLOW Urine Appearance CLOUDY CLEAR Urine pH 5.0 4.5-7.5 Urine Specific [place] 1.024 1.000-1.030 Urine Protein NEG NEG Urine Glucose (UA) NEG NEG Urine Ketones NEG NEG Urine Occult Blood TRACE NEG Urine Nitrite POS NEG Urine Bilirubin NEG NEG Urine Urobilinogen NEG NEG Urine Leukocyte Esterase MODERATE NEG Urine WBC (Auto) >30 0-5 /hpf Urine RBC (Auto) 0-4 0-4 /hpf Urine Hyaline Casts (Auto) 1-5 0-5 /lpf Urine Epithelial Cells (Auto) 5-10 0-5 /lpf Urine Bacteria (Auto) 3+ NEG Microbiology Results 08/08/17 Urine Culture, Received Pending Diagnostic Radiology CT OF THE HEAD WITHOUT CONTRAST CLINICAL HISTORY: Altered mental status. COMPARISON STUDY: Head CT November 08, 2014. TECHNIQUE: Helical axial images of the head were obtained without IV contrast. Automated exposure control was utilized for the study. A dose lowering technique was utilized adhering to the principles of ALARA. FINDINGS: No acute intracranial hemorrhage, midline shift or mass effect is present. Ventricular system is stable. Basilar cisterns are patent. There are no extra axial collections. White matter hypodensities suggest moderate small vessel disease. There are no findings to suggest acute dural sinus thrombosis or acute territorial infarct. There is extensive intracranial vascular calcification. There are no significant calvarial abnormalities. Visualized portions of the sinuses and mastoid air cells are clear. IMPRESSION: No acute intracranial findings. CHEST ONE VIEW PORTABLE CLINICAL HISTORY: Altered mental status. COMPARISON STUDY: Chest radiograph May 15, 2016. FINDINGS: Left breast surgical clips are noted. There are cholecystectomy clips. There is no pneumothorax or pleural effusion. Lower lung predominant interstitial thickening is noted. There is no evidence of pulmonary edema. Cardiomediastinal silhouette is stable. Mild right lower lung opacity likely reflects interstitial lung disease. IMPRESSION: Diffuse interstitial thickening suggestive of interstitial lung disease with pulmonary fibrosis. No superimposed consolidation. CT OF THE ABDOMEN AND PELVIS WITH CONTRAST CLINICAL HISTORY: Diarrhea. Altered mental status. COMPARISON STUDY: CT of the abdomen and pelvis May 15, 2016 and abdominal series May 16, 2016. TECHNIQUE: Following IV administration of 80 mL of [id number]-320, axial images of the abdomen and pelvis were obtained from the lung bases to the proximal femurs. Images were reviewed in the axial, sagittal, and coronal planes. IV contrast was administered without complication. A dose lowering technique was utilized adhering to the principles of ALARA. CT DOSE: 782.99 mGy.cm FINDINGS: Visualized portions of the lower chest demonstrate moderate cardiomegaly with subpleural reticulation and groundglass opacities which suggest interstitial lung disease. No pneumatosis, free air or portal venous gas is present. Biliary and pancreatic ductal dilatation is similar to prior exams. A 1.5 cm water attenuation pancreas body lesion is unchanged. There is no peripancreatic infiltration. No new pancreatic lesions are identified. Several hepatic cysts are noted. Marked right renal atrophy is again noted. There are several bilateral renal cysts. Calcifications within each renal sinus likely reflect vascular calcifications although small renal calculi would be difficult to exclude. There is no hydronephrosis. There are no ureteral calculi. There is no evidence for a bowel obstruction. There are fluid-filled right lower quadrant and pelvic small bowel loops without transition point to suggest a bowel obstruction. Sigmoid anastomosis is noted. Pelvic infiltration is noted. This is been shown on prior exams. There is gas within the bladder. Moderate bladder wall thickening is noted. Old L1 and L5 compression fractures are noted. There is extensive atherosclerotic plaque of the abdominal aorta. There is mild dilatation of the distal descending thoracic aorta which measures 3 cm. The abdominal aorta is ectatic. There is extensive atherosclerotic plaque of the major branch vessels. IMPRESSION: 1. Mildly dilated fluid-filled small bowel loops within the right lower quadrant and pelvis without transition point to strongly suggest a small bowel obstruction. 2. Mild pelvic infiltration which has been shown on prior exams and may be chronic. 3. Gas within the bladder which may be related to recent instrumentation. Moderate bladder wall thickening. The findings could be correlated with urinalysis to exclude cystitis. 4. No change in biliary ductal dilatation which is likely related to prior cholecystectomy. EKG Afib rate [address]-T wave changes suggesting ischemia Impression Assessment and Plan Ms. Bryan is an 86 yo female with PMH multiple cancers (including s/p partial colectomy), afib, UTI / neurogenic bladder, chronic jaw pain who was admitted for dehydration, acute kidney injury, and UTI. Dehydration and acute kidney injury - Admit BUN/Cr was 43/1.72. Comparison Cr in Jul 2017 was 1.14. Likely pre- renal in origin. - [id number] TTE noted normal LV size, wall thickness, EF 65-70%. - Given NS 500 mL in ED. Will start judicious LR at 75 ml/hr for rehydration. - Recheck labs in AM. - Holding lisinopril due to elevated Cr. History SBO - History of colonic adenoma s/p surgery and chemotherapy. - 09Dec CT a/p with contrast (see full report): No clear SBO but mildly dilated small bowel loops. Gas in bladder. No change in biliary duct dilatation (3 cm ) which is likely related to prior cholecystectomy. - Prior note of SBO on d/c instructions in May 2016, with note of multiple other admissions for the same. Colonoscopy in May 2016 noted healthy- appearing colo-colonic anastomosis with diverticulosis, ulcerated mucosa at anus , but otherwise normal. - At present, the lack of any abdominal discomfort, N/V, or tenderness on exam argues against acute SBO. Will monitor. UTI - Dec UA positive for nitrite, LE, WBC, and bacteria. CBC WBC 7. Given NS 500 mL IVF and ceftriaxone 1 gram IV in ED. Dec UCx pending. - Started on ceftriaxone IV in ED, will continue on admit until sensitivities are back. - Continue TID self-catheterization (or in this case nursing-assisted, greatly appreciated). Jaw pain - Per patient and family, ongoing for "years", including recent dental work. - Dec CT Head without contrast: No acute intracranial findings. - Will monitor. Start with tylenol prn for pain. Atrial fibrillation - history of same - ED EKG was afib rate 59 with no acute ischemic change. - Dec pCXR: Diffuse interstitial thickening suggestive of interstitial lung disease with pulmonary fibrosis. No superimposed consolidation. - On home pradaxa 75 daily - On home digoxin 0.125 mg MWF HTN - Home Imdur ER 90 daily. - Holding home lasix, unclear why patient is on this, will investigate. 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 Cath 2010 noted extensive disease. Considered non-surgical candidate at that time. --- Home nitrostat 0.4 mg prn. - HLD - Renal artery stenosis - Urinary retention: On home Methenamine Hippurate 1 mg PO BID. - SMA stenosis - TIA 2013: Left-sided weakness, resolved. - GI bleed February 2013. - ? GERD --- Home Prilosec 40 daily Labs: - Dec influenza screen negative. Code status: Full DVT prophy: Pradaxa as above Disposition: Admit to medicine. , lives alone, retired, but family in the area supporting. Resident Physician Supervision Note: I was present with Dr. Corcoran during the history and exam. I discussed the case with the resident and agree with the findings and plan as documented in the note. 86 y/o female with 2-3 weeks history of progressive anorexia and loose stool presents to the ED with dehydration, BETO, and apparent UTI. She is non toxic, hemodynamically stable. Her AF is stable, rate controlled. She has a history of SBO, but examination today not consistent with such. Agree with gentle hydration , repeat labs in AM and c-diff given loose stools. Continue antibiotics pending urine culture/sensitivity. Documented By: Azael Cummins Level of Care Med/Surg Resuscitation Status FULL RESUSCITATION VTE Prophylaxis VTE Risk Assessment Done? Y/N: Yes Risk Level: Moderate Given or contraindicated: Other Anticoagulation
[2017-08-08] MEDS ORDERED: MAGNESIUM HYDROXIDE SUSP 30 ML UDC PO PRN (18:15)
[2017-08-08] MEDS ORDERED: ACETAMINOPHEN 325 MG TAB PO PRN (18:15)
[2017-08-08] MEDS ORDERED: ONDANSETRON INJ 2 MG/ML 2 ML VIAL IV PRN (18:15)
[2017-08-08] MEDS ORDERED: NITROGLYCERIN 0.4 MG SL PER TAB CHARGE UT PRN (18:30)
[2017-08-08 19:30] VITALS: BP 141/82; PULSE 57; TEMP 36.4; O2SAT 99; Ht 147.3 cm; Wt 38.0 kg
[2017-08-08] MEDS: LACTATED RINGER'S 1000ML 1,000 ML IV SCH (20:22)
[2017-08-08] MEDS ORDERED: METHENAMINE HIPPURATE 1 GM TAB PO SCH (21:00)
[2017-08-08] MEDS: METOPROLOL TARTRATE 50 MG TAB PO SCH (21:00)
[2017-08-08] MEDS ORDERED: MAGNESIUM CHLORIDE 64MG DELAYED REL TAB PO SCH (21:00)
[2017-08-08] MEDS: MAGNESIUM OXIDE 400 MG TAB PO SCH (21:06)
[2017-08-08] MEDS: DABIGATRAN ELEXILATE 75 MG CAP PO SCH (21:07)
[2017-08-08 23:12] VITALS: BP 113/68; PULSE 65; TEMP 36.6; O2SAT 99
[2017-08-09 07:13] LABS: BASO % 0.5 %; BASO ABS # 0.03 K/uL (0-0.2); COMPLETE YES; EOS % 0.8 %; HEMATOCRIT 35.2 % (37-47); IG% 0.5 %; LYMPH % 17.6 %; LYMPH ABS # 1.04 K/uL (1.2-3.4); MEAN CORPUSCULAR HEMOGLOBIN 24.5 pg (25-34); MEAN CORPUSCULAR HGB CONC 31.8 g/dl (32-36); MEAN PLATELET VOLUME 9.8 fL (7.4-10.4); NEUT % 72.6 %; PLATELET COUNT 180 K/uL (130-400); RED BLOOD COUNT 4.57 M/uL (4.2-5.4); WHITE BLOOD COUNT 5.91 K/uL (4.8-10.8)
[2017-08-09 07:47] LABS: CALCIUM 8.8 mg/dl (8.5-10.1); CREATININE 1.34 mg/dl (0.60-1.20)
[2017-08-09 08:08] VITALS: BP 124/74; PULSE 62; TEMP 36.7; O2SAT 100
--- NOTE | 2017-08-09 08:14 | Family Medicine Progress Note ---
Progress Note Date of Service Aug 09, 2017. Subjective Pt evaluation today including: conversation w/ patient, physical exam, chart review, lab review, review of studies Initially found patient sleeping comfortably. Quickly woke up to voice, asked where she was, but then became more alert and oriented. Says that she has no current pains or complaints. Sat up, looked forward to trying her breakfast that just arrived. No reports of diarrhea overnight. Constitutional: No fever, No chills Respiratory: No cough, No shortness of breath Cardiovascular: + edema (trace in legs), No chest pain Abdomen: No pain, No nausea, No vomiting Female : No dysuria Medications Current Inpatient Medications Medications (Trade) Dose Ordered Sig/Nicolás Route Start Time Stop Time Status Last Admin Dose Admin Ioversol (Optiray 320) 125 ml UD PRN IV 08/08/17 13:15 08/12/17 13:14 Acetaminophen (Tylenol Tab) 650 mg Q4H PRN PO 08/08/17 18:15 09/07/17 18:14 Magnesium Hydroxide (Milk Of Magnesia Susp) 30 ml Q6H PRN PO 08/08/17 18:15 09/07/17 18:14 Ondansetron HCl (Zofran Inj) 4 mg Q6H PRN IV 08/08/17 18:15 09/07/17 18:14 Lactated Ringer's 1,000 ml @ 75 mls/hr [id number] IV 08/08/17 18:15 09/07/17 18:14 08/08/17 20:22 75 MLS/HR Ceftriaxone Sodium 1 gm/ Dextrose 50 ml @ 100 mls/hr Q24H IV 08/09/17 17:00 08/17/17 17:29 Dabigatran (Pradaxa Cap) 75 mg BID PO 08/08/17 21:00 09/07/17 20:59 08/08/17 21:07 75 MG Digoxin (Lanoxin Tab) 0.125 mg MoWeFr@1600 PO 08/10/17 16:00 09/09/17 15:59 Isosorbide Mononitrate (Imdur Ext Rel Tab) 90 mg DAILY PO 08/09/17 09:00 09/08/17 08:59 Metoprolol Tartrate (Lopressor Tab) 50 mg BID PO 08/08/17 21:00 09/07/17 20:59 Multivitamins (Multivitamin Tab) 1 tab DAILY PO 08/09/17 09:00 09/08/17 08:59 Nitroglycerin (Nitrostat Tab) 0.4 mg UD PRN UT 08/08/17 18:30 09/07/17 18:29 Pantoprazole Sodium (Protonix Tab) 40 mg QAM PO 08/09/17 09:00 09/08/17 08:59 Magnesium Oxide (Mag-Ox Tab) 400 mg BID PO 08/08/17 21:00 09/07/17 20:59 08/08/17 21:06 400 MG Objective Vital Signs Date Time Temp Pulse Resp B/P (MAP) Pulse Ox O2 Delivery O2 Flow Rate FiO2 08/09/17 08:08 36.7 62 20 124/74 (91) 100 2.0 08/09/17 00:02 Room Air 08/08/17 23:12 36.6 65 18 113/68 (83) 99 Room Air 08/08/17 19:30 36.4 57 18 141/82 99 Room Air 08/08/17 19:07 53 18 111/52 97 08/08/17 18:05 66 18 98 08/08/17 18:00 140/76 08/08/17 17:45 62 18 98 08/08/17 17:40 60 22 96 08/08/17 17:30 120/62 08/08/17 17:10 59 18 99 08/08/17 17:05 54 18 93 08/08/17 17:00 128/65 08/08/17 16:35 60 17 97 08/08/17 16:30 130/71 08/08/17 16:12 54 20 93 08/08/17 16:00 113/67 08/08/17 15:42 56 19 99 08/08/17 15:37 65 21 99 08/08/17 15:31 125/64 08/08/17 15:25 130/58 08/08/17 13:37 55 22 95 08/08/17 13:32 56 18 98 08/08/17 13:31 50 08/08/17 13:30 114/56 08/08/17 13:29 109/56 08/08/17 13:26 121/64 08/08/17 13:23 51 20 115/53 98 Room Air 59 103/52 68 121/64 08/08/17 13:23 98 Room Air 08/08/17 13:23 98 Room Air 08/08/17 12:07 36.3 55 20 108/70 98 Room Air Physical Exam General Appearance: no apparent distress, + cachetic Respiratory/Chest: chest non-tender, lungs clear, normal breath sounds Cardiovascular: no murmur, + irregularly irregular Abdomen: normal bowel sounds, non tender (throughout), soft, + pertinent finding (very thin habitus) Extremities: + pedal edema (trace bilaterally) Laboratory Results 08/09/17 06:24 Red Blood Count 4.57, Mean Corpuscular Volume 77.0, Mean Corpuscular Hemoglobin 24.5, Mean Corpuscular Hemoglobin Concent 31.8, Mean Platelet Volume 9.8, Neutrophils (%) (Auto) 72.6, Lymphocytes (%) (Auto) 17.6, Monocytes (%) (Auto) 8.0, Eosinophils (%) (Auto) 0.8, Basophils (%) (Auto) 0.5, Neutrophils # (Auto) 4.29, Lymphocytes # (Auto) 1.04, Monocytes # (Auto) 0.47, Eosinophils # (Auto) 0.05, Basophils # (Auto) 0.03 08/09/17 06:24 Test 08/08/17 13:10 08/08/17 13:15 08/08/17 13:20 08/08/17 15:20 Influenza Type A (RT-PCR) Neg for Influ A (NEG) Influenza Type A Antigen Neg for Influ A (NEG) Influenza Type B Antigen Neg for Influ B (NEG) Influenza Type B (RT-PCR) Neg for Influ B (NEG) Total Bilirubin 0.3 mg/dl (0.2-1) Direct Bilirubin < 0.1 mg/dl (0-0.2) Aspartate Amino Transf (AST/SGOT) 22 U/L (15-37) Alanine Aminotransferase (ALT/SGPT) 14 U/L (12-78) Alkaline Phosphatase 74 U/L (45-117) Total Creatine Kinase 40 U/L (26-192) Creatine Kinase MB 1.3 ng/ml (0.5-3.6) Creatine Kinase MB Ratio 3.3 (0-3.0) Troponin I 0.023 ng/ml (0-0.045) Total Protein 7.9 gm/dl (6.4-8.2) Albumin 3.3 gm/dl (3.4-5.0) Thyroid Stimulating Hormone (TSH) 1.550 uIu/ml (0.300-4.500) Bedside Hemoglobin 12.2 g/dl (12.0-16.0) Bedside Hematocrit 36 % (37-47) Bedside Sodium 137 mEq/L (135-144) Bedside Potassium 4.6 mEq/L (3.3-5.0) Bedside Chloride 110 mEq/L (101-112) Bedside Total CO2 19 mEq/l (24-31) Bedside Blood Urea Nitrogen 45 mg/dl (7-18) Bedside Creatinine 1.8 mg/dl (0.6-1.3) Bedside Glucose (other) 88 mg/dl (70-99) Bedside Ionized Calcium (Gume) 1.27 mmol/l (1.12-1.32) Urine Color YELLOW Urine Appearance CLOUDY (CLEAR) Urine pH 5.0 (4.5-7.5) Urine Specific Clear 1.024 (1.000-1.030) Urine Protein NEG (NEG) Urine Glucose (UA) NEG (NEG) Urine Ketones NEG (NEG) Urine Occult Blood TRACE (NEG) Urine Nitrite POS (NEG) Urine Bilirubin NEG (NEG) Urine Urobilinogen NEG (NEG) Urine Leukocyte Esterase MODERATE (NEG) Urine WBC (Auto) >30 /hpf (0-5) Urine RBC (Auto) 0-4 /hpf (0-4) Urine Hyaline Casts (Auto) 1-5 /lpf (0-5) Urine Epithelial Cells (Auto) 5-10 /lpf (0-5) Urine Bacteria (Auto) 3+ (NEG) Test 08/08/17 20:51 08/09/17 06:24 Bedside Glucose 87 mg/dl (70-90) White Blood Count 5.91 K/uL (4.8-10.8) Red Blood Count 4.57 M/uL (4.2-5.4) Hemoglobin 11.2 g/dL (12.0-16.0) Hematocrit 35.2 % (37-47) Mean Corpuscular Volume 77.0 fL (80-100) Mean Corpuscular Hemoglobin 24.5 pg (25-34) Mean Corpuscular Hemoglobin Concent 31.8 g/dl (32-36) Platelet Count 180 K/uL (130-400) Mean Platelet Volume 9.8 fL (7.4-10.4) Neutrophils (%) (Auto) 72.6 % Lymphocytes (%) (Auto) 17.6 % Monocytes (%) (Auto) 8.0 % Eosinophils (%) (Auto) 0.8 % Basophils (%) (Auto) 0.5 % Neutrophils # (Auto) 4.29 K/uL (1.4-6.5) Lymphocytes # (Auto) 1.04 K/uL (1.2-3.4) Monocytes # (Auto) 0.47 K/uL (0.11-0.59) Eosinophils # (Auto) 0.05 K/uL (0-0.5) Basophils # (Auto) 0.03 K/uL (0-0.2) RDW Standard Deviation 49.3 fL (36.4-46.3) RDW Coefficient of Variation 17.9 % (11.5-14.5) Immature Granulocyte % (Auto) 0.5 % Immature Granulocyte # (Auto) 0.03 K/uL (0.00-0.02) Anion Gap 10.0 mmol/L (3-11) Est Creatinine Clear Calc Drug Dose 17.7 ml/min Estimated GFR () 41.2 Estimated GFR (Non- 35.5 BUN/Creatinine Ratio 29.0 (10-20) Calcium Level 8.8 mg/dl (8.5-10.1) Magnesium Level 2.3 mg/dl (1.8-2.4) Assessment and Plan Ms. Bryan is an 86 yo female with PMH multiple cancers (including s/p partial colectomy), afib, UTI / neurogenic bladder, chronic jaw pain who was admitted for dehydration, acute kidney injury, and UTI. Dehydration, diarrhea, and acute kidney injury - Admit BUN/Cr was 43/1.72. Comparison Cr in Jul 2017 was 1.14. Likely pre- renal in origin due to reported diarrhea. - 09Dec ordered C diff and stool culture (pending results). No reports of diarrhea overnight (09-10Dec). - [id number] TTE noted normal LV size, wall thickness, EF 65-70%. - Given NS 500 mL in ED. Started on judicious LR at 75 ml/hr for rehydration as inpatient. - Holding home lisinopril due to elevated Cr. - Ordered boost tid with meals to help with nutrition. History SBO - History of colonic adenoma s/p surgery and chemotherapy. - CT a/p with contrast (see full report): No clear SBO but mildly dilated small bowel loops. Gas in bladder. No change in biliary duct dilatation (3 cm ) which is likely related to prior cholecystectomy. - Prior note of SBO on d/c instructions in May 2016, with note of multiple other admissions for the same. Colonoscopy in May 2016 noted healthy- appearing colo-colonic anastomosis with diverticulosis, ulcerated mucosa at anus , but otherwise normal. - At present, the lack of any abdominal discomfort, N/V, or tenderness on exam argues against acute SBO. Will monitor. UTI - UA positive for nitrite, LE, WBC, and bacteria. CBC WBC 7. Given NS 500 mL IVF and ceftriaxone 1 gram IV in ED. - UCx pending. - Started on ceftriaxone IV in ED, continued on admit until sensitivities are back. - Continue TID self-catheterization (or in this case nursing-assisted, greatly appreciated) for neurogenic bladder. - On home Methenamine Hippurate 1 gram PO BID. Jaw pain - Per patient and family, ongoing for "years", including recent dental work on . - CT Head without contrast: No acute intracranial findings. - Will monitor. Tylenol prn for pain. Atrial fibrillation - history of same - ED EKG was afib rate 59 with no acute ischemic change. - pCXR: Diffuse interstitial thickening suggestive of interstitial lung disease with pulmonary fibrosis. No superimposed consolidation. - On home pradaxa 75 daily - On home digoxin 0.125 mg MWF. - On home metoprolol tartrate 50 BID. HTN - On home Imdur ER 90 daily. - Holding home lasix, unclear why patient is on this, will investigate. - Holding home lisinopril 5 daily due to BETO. PMH: - CAD: Admitted on 12Jun2011 with NSTEMI. Cath 2010 noted extensive disease. Considered non-surgical candidate at that time. --- Home nitrostat 0.4 mg prn. - ? GERD: At home on prilosec 40 daily. Switched to protonix 40 q day as inpatient. 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 - GI bleed February 2013. Labs: - 09Dec influenza screen negative. Code status: Full DVT prophy: Pradaxa as above Disposition: Pending. , lives alone, retired, but family in the area supporting. - PT consult pending - OT consult pending Resident Physician Supervision Note: I interviewed and examined the patient. Discussed with Dr. Corcoran and agree with findings and plan as documented in the note. Creatinine is improving. She , in general, is better today compared to yesterday although still notes a vertiginous type feeling when sitting up. Agree with note as above; physical therapy and occupational therapy consults are pending. Documented By: Azael Cummins Resident Tracking Resident Involvement: Resident Care Provided Care Provided: Adult Hospital Medicine (inpt rounds)
[2017-08-09] MEDS ORDERED: LISINOPRIL 5 MG TAB PO SCH (09:00)
[2017-08-09] MEDS: LACTATED RINGER'S 1000ML 1,000 ML IV SCH ×2 (10:15→20:39)
[2017-08-09] MEDS: MULTIVITAMIN TAB PO SCH (10:16)
[2017-08-09] MEDS: PANTOprazole SOD 40 MG TAB PO SCH (10:16)
[2017-08-09] MEDS: DABIGATRAN ELEXILATE 75 MG CAP PO SCH ×2 (10:16→20:40)
[2017-08-09] MEDS: METOPROLOL TARTRATE 50 MG TAB PO SCH ×2 (10:16→20:42)
[2017-08-09] MEDS: ISOSORBIDE MONONITRATE 30 MG TABCR PO SCH (10:17)
[2017-08-09] MEDS: MAGNESIUM OXIDE 400 MG TAB PO SCH ×2 (10:17→20:40)
[2017-08-09] MEDS ORDERED: BOOST VANILLA PO SCH ×2 (12:00)
[2017-08-09 16:25] VITALS: BP 96/42; PULSE 69; TEMP 36.9; O2SAT 93
[2017-08-09] MEDS ORDERED: CEFTRIAXONE SOD INJ 1 GM in DEXTROSE 5% ADD-VANTAGE 50ML 50 ML IV SCH (17:00)
[2017-08-09] MEDS: BOOST PLUS VANILLA PO SCH ×2 (17:13)
[2017-08-09 19:30] VITALS: O2SAT 93
[2017-08-09 20:43] VITALS: BP 105/58
[2017-08-09 23:09] VITALS: BP 101/53; PULSE 88; TEMP 36.8; O2SAT 97
[2017-08-10 07:08] LABS: BASO % 0.5 %; BASO ABS # 0.02 K/uL (0-0.2); EOS % 2.5 %; IG% 0.2 %; LYMPH % 24.9 %; MEAN CELL VOLUME 75.9 fL (80-100); MEAN CORPUSCULAR HEMOGLOBIN 23.8 pg (25-34); MEAN CORPUSCULAR HGB CONC 31.4 g/dl (32-36); MEAN PLATELET VOLUME 9.1 fL (7.4-10.4); MONO % 12.2 %; NEUT % 59.7 %; PLATELET COUNT 133 K/uL (130-400); RED BLOOD COUNT 3.69 M/uL (4.2-5.4); WHITE BLOOD COUNT 4.01 K/uL (4.8-10.8)
[2017-08-10 07:09] VITALS: BP 118/56; PULSE 73; TEMP 36.8; O2SAT 97
--- NOTE | 2017-08-10 07:28 | Family Medicine Progress Note ---
Progress Note Date of Service Aug 10, 2017. Subjective Pt evaluation today including: conversation w/ patient, conversation w/ family , physical exam, chart review, lab review, review of inpatient medication list Pain: No pain reported PO Intake: Tolerating PO intake Voiding: no voiding problems Ms. Bryan reports she feels well today. She states she has been eating and drinking okay, and denies any urinary symptoms, chest pain, shortness of breath. She states she has pain in her jaw that has been a chronic problem for her, but otherwise reports no concerns. Constitutional: No fever, No chills ENT: + problem reported (jaw pain) Respiratory: No cough, No sputum, No wheezing, No shortness of breath Cardiovascular: No chest pain Abdomen: No pain, No nausea, No vomiting All Other Systems: Reviewed and Negative Objective Vital Signs Date Time Temp Pulse Resp B/P (MAP) Pulse Ox O2 Delivery O2 Flow Rate FiO2 08/10/17 08:00 Room Air 08/10/17 07:09 36.8 73 16 118/56 (76) 97 Room Air 08/10/17 00:24 Room Air 08/09/17 23:09 36.8 88 18 101/53 (69) 97 Room Air 08/09/17 20:43 75 105/58 (74) 08/09/17 19:30 93 Room Air 08/09/17 16:25 36.9 69 18 96/42 (60) 93 Room Air 08/09/17 16:00 Room Air Physical Exam General Appearance: WD/WN, no apparent distress Respiratory/Chest: chest non-tender, lungs clear, normal breath sounds, no respiratory distress, no accessory muscle use Cardiovascular: regular rate, rhythm, no edema, no gallop, no JVD, no murmur Abdomen: normal bowel sounds, non tender, soft, no organomegaly, no pulsatile mass Laboratory Results Last 24 Hours Test 08/10/17 06:59 White Blood Count 4.01 K/uL Red Blood Count 3.69 M/uL Hemoglobin 8.8 g/dL Hematocrit 28.0 % Mean Corpuscular Volume 75.9 fL Mean Corpuscular Hemoglobin 23.8 pg Mean Corpuscular Hemoglobin Concent 31.4 g/dl Platelet Count 133 K/uL Mean Platelet Volume 9.1 fL Neutrophils (%) (Auto) 59.7 % Lymphocytes (%) (Auto) 24.9 % Monocytes (%) (Auto) 12.2 % Eosinophils (%) (Auto) 2.5 % Basophils (%) (Auto) 0.5 % Neutrophils # (Auto) 2.39 K/uL Lymphocytes # (Auto) 1.00 K/uL Monocytes # (Auto) 0.49 K/uL Eosinophils # (Auto) 0.10 K/uL Basophils # (Auto) 0.02 K/uL RDW Standard Deviation 48.5 fL RDW Coefficient of Variation 17.8 % Immature Granulocyte % (Auto) 0.2 % Immature Granulocyte # (Auto) 0.01 K/uL Red Blood Cell Morphology Unremarkable Sodium Level 138 mmol/L Potassium Level 4.0 mmol/L Chloride Level 111 mmol/L Carbon Dioxide Level 20 mmol/L Anion Gap 7.0 mmol/L Blood Urea Nitrogen 32 mg/dl Creatinine 1.22 mg/dl Est Creatinine Clear Calc Drug Dose 19.5 ml/min Estimated GFR () 46.1 Estimated GFR (Non- 39.8 BUN/Creatinine Ratio 26.4 Random Glucose 91 mg/dl Calcium Level 8.1 mg/dl Assessment and Plan Ms. Bryan is an 86 year old female with PMH of multiple cancers (including s/ p partial colectomy), afib, UTI / neurogenic bladder, chronic jaw pain who was admitted for dehydration, acute kidney injury, and UTI. BETO secondary UTI - Admit creatinine was 1.72. Comparison Cr in Jul 2017 was 1.14. Creatinine today was 1.22, improving - contiinue LR at 75 ml/hr - Holding home lisinopril due to elevated Cr - Ordered boost tid with meals to help with nutrition. UTI - due to patient performed intermittent self-catheterization, a complication of care - d/c IV Ceftriaxone and start Macrobid 100mg BID given the e.coli grown was resistant to ceftriaxone - Continue TID self-catheterization (or in this case nursing-assisted, greatly appreciated) for neurogenic bladder. - Continue Methenamine Hippurate 1 gram PO BID. Chronic off and on diarrhea - Possible underlying IBS. - outpatient follow up. Jaw pain - Per patient and family, ongoing for years, including after recent dental work on 07Dec. - 09Dec CT Head without contrast: No acute intracranial findings. - Tylenol prn for pain. Atrial fibrillation - rate controlled - continue home pradaxa 75 daily, digoxin 0.125 mg MWF and metoprolol tartrate 50 BID. HTN - Continue Imdur ER 90 daily. - Holding home lasix, unclear why patient is on this, will investigate. - Holding home lisinopril 5 daily due to BETO. PMH: - CAD: Admitted on 12Jun2011 with NSTEMI. Cath 2010 noted extensive disease. Considered non-surgical candidate at that time. --- Home nitrostat 0.4 mg prn. - ? GERD: At home on prilosec 40 daily. Switched to protonix 40 q day as inpatient. - History of colonic adenoma s/p surgery and chemotherapy. 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 - GI bleed February 2013. Code status: Full DVT prophy: Pradaxa as above Disposition: To [facility] tomorrow. PT felt patient was not safe to go home and recommended care facility. Resident Tracking Resident Involvement: Resident Care Provided Care Provided: Adult Hospital Medicine Reviewed: Pt Seen/Exam by Me History feeling well has had low appetite for breakfast but eating well for lunch and dinner has had problem with loose stools off and on for a long time. Constitutional: denies: fever Respiratory: negative: short of breath Cardiovascular: denies chest pain General Appearance: no apparent distress Respiratory: no respiratory distress Gastrointestinal: normal bowel sounds, non tender, soft Neurologic/Psychiatric: alert, oriented x 3 Skin Characteristics: warm/dry Assessment/Plan Resident Physician Supervision Note: I independently interviewed and examined the patient and verified the da silva history and physical, reviewed labs and image studies, discussed the case with the resident Dr. Escalante and agree with the findings and care plan.
[2017-08-10 07:29] LABS: BUN/CREATININE RATIO 26.4 (10-20); CALCIUM 8.1 mg/dl (8.5-10.1); CREATININE 1.22 mg/dl (0.60-1.20)
[2017-08-10 07:52] LABS: COMPLETE YES
[2017-08-10] MEDS: BOOST PLUS VANILLA PO SCH ×6 (08:52→17:11)
[2017-08-10] MEDS: DABIGATRAN ELEXILATE 75 MG CAP PO SCH ×2 (08:53→20:10)
[2017-08-10] MEDS: MULTIVITAMIN TAB PO SCH (08:53)
[2017-08-10] MEDS: MAGNESIUM OXIDE 400 MG TAB PO SCH ×2 (08:53→20:11)
[2017-08-10] MEDS: PANTOprazole SOD 40 MG TAB PO SCH (08:53)
[2017-08-10] MEDS: METOPROLOL TARTRATE 50 MG TAB PO SCH ×2 (08:54→20:33)
[2017-08-10] MEDS: ISOSORBIDE MONONITRATE 30 MG TABCR PO SCH (08:54)
--- NOTE | 2017-08-10 09:51 | Clinical Documentation Query ---
LEONARDO Long : CLINICAL DOCUMENTATION QUERY Patient is an 86 year old female admitted for evaluation and treatment of dehydration, diarrhea, BETO, and UTI. H&P notes patient performs independent urethral catheterization TID at home. If you feel the UTI was (likely) due to intermittent self-catheterization, consider documentation as suggested below as this impacts accurate DRG assignment. Thank you. In your clinical opinion is this patient being managed for: ( ) UTI due to patient performed intermittent self-catheterization, a complication of care ( ) Not Agree ( ) Other explanation of clinical findings (Please Explain) ( ) Unable to determine (Please Define) ( ) Need to Discuss The medical record reflects the following clinical findings, treatment, and risk factors. Clinical Indicators: As above Treatment: UA, C&S, Rocephin IV, ongoing nursing assisted intermittent urethral catheterization. Risk Factors: Self cath, neurogenic bladder Please clarify and document your clinical opinion in the progress notes and discharge summary. Terms such as "probable", "suspected", "likely", "questionable", "possible", or "still to be ruled out" are acceptable. IF IN AGREEMENT, YOU MUST DOCUMENT ABOVE DIAGNOSTIC STATEMENT IN DAILY PROGRESS NOTES AND DISCHARGE SUMMARY. This document is not part of the patient's record. Thank You, Howard Martinez, RN [phone]
--- NOTE | 2017-08-10 09:52 | Clinical Documentation Query ---
Dr. [facility] : CLINICAL DOCUMENTATION QUERY Patient is an 86 year old female admitted for evaluation and treatment of dehydration, diarrhea, BETO, and UTI. H&P notes patient performs independent urethral catheterization TID at home. If you feel the UTI was (likely) due to intermittent self catheterization, consider documentation as suggested below as this impacts accurate DRG assignment. Thank you. In your clinical opinion is this patient being managed for: (x ) UTI due to patient performed intermittent self-catheterization, a complication of care ( ) Not Agree ( ) Other explanation of clinical findings (Please Explain) ( ) Unable to determine (Please Define) ( ) Need to Discuss The medical record reflects the following clinical findings, treatment, and risk factors. Clinical Indicators: As above Treatment: UA, C&S, Rocephin IV, ongoing nursing assisted intermittent urethral catheterization. Risk Factors: Self cath, neurogenic bladder Please clarify and document your clinical opinion in the progress notes and discharge summary. Terms such as "probable", "suspected", "likely", "questionable", "possible", or "still to be ruled out" are acceptable. IF IN AGREEMENT, YOU MUST DOCUMENT ABOVE DIAGNOSTIC STATEMENT IN DAILY PROGRESS NOTES AND DISCHARGE SUMMARY. This document is not part of the patient's record. Thank You, Howard Martinez, RN [phone]
[2017-08-10] MEDS: LACTATED RINGER'S 1000ML 1,000 ML IV SCH ×2 (10:23→23:22)
[2017-08-10 14:51] VITALS: BP 101/51; PULSE 72; TEMP 36.7; O2SAT 94
[2017-08-10] MEDS ORDERED: DIGOXIN 0.125 MG TAB PO SCH (16:00)
[2017-08-10] MEDS: NITROFURANTOIN MONOHYDRATE 100 MG CAP PO SCH (20:10)
[2017-08-10 20:33] VITALS: BP 119/61; PULSE 57
[2017-08-10 22:37] VITALS: BP 115/53; PULSE 62; TEMP 36.9; O2SAT 94
[2017-08-11] VITALS: O2SAT 94
[2017-08-11 05:52] LABS: BASO % 0.3 %; BASO ABS # 0.01 K/uL (0-0.2); EOS % 1.4 %; IG% 0.3 %; LYMPH % 23.9 %; LYMPH ABS # 0.83 K/uL (1.2-3.4); MEAN CELL VOLUME 76.3 fL (80-100); MEAN CORPUSCULAR HEMOGLOBIN 24.6 pg (25-34); MEAN CORPUSCULAR HGB CONC 32.2 g/dl (32-36); MEAN PLATELET VOLUME 9.5 fL (7.4-10.4); MONO % 13.2 %; NEUT % 60.9 %; PLATELET COUNT 127 K/uL (130-400); RED BLOOD COUNT 3.54 M/uL (4.2-5.4); WHITE BLOOD COUNT 3.48 K/uL (4.8-10.8)
[2017-08-11 06:28] LABS: BUN/CREATININE RATIO 24.9 (10-20); CALCIUM 8.2 mg/dl (8.5-10.1)
[2017-08-11 06:47] LABS: COMPLETE YES
[2017-08-11 07:14] VITALS: BP 151/64; PULSE 76; TEMP 36.9; O2SAT 97
[2017-08-11] MEDS: METOPROLOL TARTRATE 50 MG TAB PO SCH (07:50)
[2017-08-11] MEDS: MAGNESIUM OXIDE 400 MG TAB PO SCH (07:50)
[2017-08-11] MEDS: MULTIVITAMIN TAB PO SCH (07:50)
[2017-08-11] MEDS: PANTOprazole SOD 40 MG TAB PO SCH (07:51)
[2017-08-11] MEDS: ISOSORBIDE MONONITRATE 30 MG TABCR PO SCH (07:51)
[2017-08-11] MEDS: NITROFURANTOIN MONOHYDRATE 100 MG CAP PO SCH (07:51)
[2017-08-11] MEDS: DABIGATRAN ELEXILATE 75 MG CAP PO SCH (07:52)
[2017-08-11] MEDS: BOOST PLUS VANILLA PO SCH ×4 (08:00→11:51)
[2017-08-11] MEDS ORDERED: MCRB100 PO (09:38)
--- NOTE | 2017-08-11 10:04 | Discharge Instructions ---
Discharge Instructions Date of Service Aug 11, 2017. Admission Reason for Admission: Dehydration, Uti Discharge Discharge Diagnosis / Problem: UTI Discharge Goals Goal(s): Decrease discomfort, Improve function Activity Recommendations Activity Limitations: resume your previous activity . Instructions / Follow-Up Instructions / Follow-Up Ms. Bryan was admitted to [facility] due to dehydration, BETO and a UTI. Below are the medical problems treated during her stay: BETO secondary to UTI - Admit creatinine was 1.72, likely due to dehydration Creatinine on discharge was 1 UTI - due to patient performed intermittent self-catheterization, a complication of care - e.coli was resistant to several antibiotics, she was discharged on 6 more days of Macrobid 100mg BID - Continue TID self-catheterization for neurogenic bladder. Chronic alternating diarrhea and constipation - Possible underlying IBS, no bowel movements on this admission, but she reports diarrhea prior to her admission - outpatient follow up Jaw pain - Per patient and family, ongoing for years, including after recent dental work on 07Dec. - 09Dec CT Head without contrast: No acute intracranial findings. - Tylenol prn for pain. Atrial fibrillation - rate controlled - continue home pradaxa 75 daily, digoxin 0.125 mg MWF and metoprolol tartrate 50mg BID. - her digoxin was held the AM of discharge due to her pulse being below 60 HTN - discontinued daily Lasix as unsure of why this medication was started - patient does not appear fluid overloaded - can restart in the outpatient setting if needed - held lisinopril in inpatient setting due to BETO and hypotension throughout hospital stay - can restart in outpatient setting once her BP has normalized Low Hemoglobin & Platelets - her hemoglobin dropped from admission level of 11.5 to 8.7 and platelets dropped from 225 to 127 - no evidence of bleeding - recheck CBC in one week to ensure levels are stable She can continue taking her other home medications as prescribed. *Review Lisinopril* Current Hospital Diet Patient's current hospital diet: Regular Diet Discharge Diet Recommended Diet: Regular Diet Pending Studies Studies pending at discharge: no Medical Emergencies . Who to Call and When: Medical Emergencies: If at any time you feel your situation is an emergency, please call 911 immediately. . Non-Emergent Contact Non-Emergency issues call your: Primary Care Provider . . "Provider Documentation" section prepared by [place]. . VTE Core Measure Inpt VTE Proph given/why not?: Other Anticoagulation
--- NOTE | 2017-08-11 10:12 | Discharge Summary ---
Discharge Summary Date of Service Aug 11, 2017. Discharge Summary Admission Date: Aug 08, 2017 at 18:25 Discharge Date: Aug 11, 2017 Discharge Disposition: intermediate facility Principal Diagnosis: UTI Problems/Secondary Diagnoses: 1) BETO 2) Chronic off and on diarrhea 3) Chronic Jaw Pain 4) Atrial fibrillation - rate controlled - continue home pradaxa 75 daily, digoxin 0.125 mg MWF and metoprolol tartrate 50 BID. 5) HTN 6) CAD w/prior NSTEMI. 7) GERD 8) History of colonic adenoma s/p surgery and chemotherapy. 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 15) GI bleed February 2013. Immunizations: Have You Had Influenza Vaccine: Yes Influenza Vaccine Date: Aug 01, 2012 History of Tetanus Vaccine?: Yes History of Pneumococcal: Unknown Pneumococcal Date: Aug 01, 2011 History of Hepatitis B Vaccine: Unknown Procedures: CT OF THE HEAD WITHOUT CONTRAST CLINICAL HISTORY: Altered mental status. COMPARISON STUDY: Head CT November 08, 2014. TECHNIQUE: Helical axial images of the head were obtained without IV contrast. Automated exposure control was utilized for the study. A dose lowering technique was utilized adhering to the principles of ALARA. FINDINGS: No acute intracranial hemorrhage, midline shift or mass effect is present. Ventricular system is stable. Basilar cisterns are patent. There are no extra axial collections. White matter hypodensities suggest moderate small vessel disease. There are no findings to suggest acute dural sinus thrombosis or acute territorial infarct. There is extensive intracranial vascular calcification. There are no significant calvarial abnormalities. Visualized portions of the sinuses and mastoid air cells are clear. IMPRESSION: No acute intracranial findings. CHEST ONE VIEW PORTABLE CLINICAL HISTORY: Altered mental status. COMPARISON STUDY: Chest radiograph May 15, 2016. FINDINGS: Left breast surgical clips are noted. There are cholecystectomy clips. There is no pneumothorax or pleural effusion. Lower lung predominant interstitial thickening is noted. There is no evidence of pulmonary edema. Cardiomediastinal silhouette is stable. Mild right lower lung opacity likely reflects interstitial lung disease. IMPRESSION: Diffuse interstitial thickening suggestive of interstitial lung disease with pulmonary fibrosis. No superimposed consolidation. CT OF THE ABDOMEN AND PELVIS WITH CONTRAST CLINICAL HISTORY: Diarrhea. Altered mental status. COMPARISON STUDY: CT of the abdomen and pelvis May 15, 2016 and abdominal series May 16, 2016. TECHNIQUE: Following IV administration of 80 mL of [id number], axial images of the abdomen and pelvis were obtained from the lung bases to the proximal femurs. Images were reviewed in the axial, sagittal, and coronal planes. IV contrast was administered without complication. A dose lowering technique was utilized adhering to the principles of ALARA. CT DOSE: 782.99 mGy.cm FINDINGS: Visualized portions of the lower chest demonstrate moderate cardiomegaly with subpleural reticulation and groundglass opacities which suggest interstitial lung disease. No pneumatosis, free air or portal venous gas is present. Biliary and pancreatic ductal dilatation is similar to prior exams. A 1.5 cm water attenuation pancreas body lesion is unchanged. There is no peripancreatic infiltration. No new pancreatic lesions are identified. Several hepatic cysts are noted. Marked right renal atrophy is again noted. There are several bilateral renal cysts. Calcifications within each renal sinus likely reflect vascular calcifications although small renal calculi would be difficult to exclude. There is no hydronephrosis. There are no ureteral calculi. There is no evidence for a bowel obstruction. There are fluid-filled right lower quadrant and pelvic small bowel loops without transition point to suggest a bowel obstruction. Sigmoid anastomosis is noted. Pelvic infiltration is noted. This is been shown on prior exams. There is gas within the bladder. Moderate bladder wall thickening is noted. Old L1 and L5 compression fractures are noted. There is extensive atherosclerotic plaque of the abdominal aorta. There is mild dilatation of the distal descending thoracic aorta which measures 3 cm. The abdominal aorta is ectatic. There is extensive atherosclerotic plaque of the major branch vessels. IMPRESSION: 1. Mildly dilated fluid-filled small bowel loops within the right lower quadrant and pelvis without transition point to strongly suggest a small bowel obstruction. 2. Mild pelvic infiltration which has been shown on prior exams and may be chronic. 3. Gas within the bladder which may be related to recent instrumentation. Moderate bladder wall thickening. The findings could be correlated with urinalysis to exclude cystitis. 4. No change in biliary ductal dilatation which is likely related to prior cholecystectomy. Medication Reconciliation New Medications: Nitrofurantoin Monohyd Macrocr (Nitrofurantoin Monohydrat) 100 Mg Cap 100 MG PO BID for 6 Days, #11 CAP Continued Medications: B-Complex Vitamins (Vitamin B Complex) 1 Tab Tab 1 TAB PO DAILY Dabigatran Etexilate Mesylate (Pradaxa) 75 Mg Cap 75 MG PO BID, CAP Digoxin (Digoxin) 0.125 Mg Tab 0.125 MG PO MWF Isosorbide Mononitrate Ext Rel (Imdur Ext Rel) 60 Mg Ertab 90 MG PO DAILY Lisinopril (Lisinopril) 5 Mg Tab 5 MG PO DAILY Lorazepam (Ativan) 0.5 Mg Tab 0.5 MG PO UD, TAB 1 tab twice a day,THIRD TABLET DAILY, NEEDED Magnesium Chloride (Slow-Mag Tab) 64 Mg Tabcr 192 MG PO BID Methenamine Hippurate (Methenamine Hippurate) 1 Gm Tab 1 MG PO BID Metoprolol Tartrate (Lopressor) (Lopressor) 50 Mg Tab 50 MG PO BID, 0 Refills Multivitamin (Multivitamin) Tab 1 TABLET PO DAILY, 0 Refills CENTRAL CIRILO Nitroglycerin (Nitrostat) 0.4 Mg Tab 0.4 MG UT UD PRN for Chest Pain, 0 Refills Omeprazole (Prilosec) 40 Mg Cap 40 MG PO DAILY, CAP Discontinued Medications: Furosemide (Furosemide) 40 Mg Tab 40 MG PO DAILY Discharge Exam Ms. Bryan reports she feels well today. She denies fever, chills, abdominal pain, shortness of breath or urinary symptoms. Her only complaint is her on and off right sided jaw pain which has been present for a number of years. Review of Systems: Constitutional: No fever, No chills Respiratory: No cough, No sputum, No wheezing Cardiovascular: No chest pain, No orthopnea, No PND, No edema Abdomen: No pain, No nausea, No vomiting Genitourinary - Female: No dysuria, No urinary frequency, No urinary urgency , No urinary incontinence, No hematuria Physical Exam: General Appearance: WD/WN, no apparent distress Respiratory/Chest: chest non-tender, lungs clear, normal breath sounds, no respiratory distress, no accessory muscle use Cardiovascular: regular rate, rhythm, no edema, no gallop, no JVD, no murmur , normal peripheral pulses Abdomen / GI: normal bowel sounds, non tender, soft, no organomegaly, no pulsatile mass Extremities: normal inspection, normal capillary refill, no pedal edema Hospital Course Ms. Bryan is an 86 year old female with PMH of multiple cancers (including s/p partial colectomy), afib, UTI / neurogenic bladder, chronic jaw pain who was admitted for dehydration, acute kidney injury, and UTI. Below are the medical problems she was treated for: BETO secondary to UTI - Admit creatinine was 1.72. Received IVF. Creatinine on discharge was 1 UTI - due to patient performed intermittent self-catheterization, a complication of care - initially treated with IV Ceftriaxone, however the e.coli grown was resistant to this and therefore Macrobid 100mg BID was started and she will be discharged on 6 more days - Continue TID self-catheterization for neurogenic bladder. Chronic on and off diarrhea - Possible underlying IBS. - outpatient follow up. Jaw pain - Per patient and family, ongoing for years, including after recent dental work on . - CT Head without contrast: No acute intracranial findings. - Tylenol prn for pain. Atrial fibrillation - rate controlled - continue home pradaxa 75 daily, digoxin 0.125 mg MWF and metoprolol tartrate 50 BID HTN - Continue Imdur ER 90 daily. Consider titrating down the dose as outpatient to avoid hypotension. - Stopped home lasix - unclear why patient was on this medication and patient does not appear fluid overloaded. Can restart in outpatient setting if needed. - Lisinopril was held here but resumed on discharge Anemia and mild thrombocytopenia - her hemoglobin dropped from admission level of 11.5 to 8.7 and platelets dropped from 225 to 127 - no evidence of bleeding - recommend recheck CBC in one week to ensure levels are stable She was advised to continue her other medications as prescribed. Total Time Spent: Greater than 30 minutes This includes examination of the patient, discharge planning, medication reconciliation, and communication with other providers. Discharge Instructions Please refer to the electronic Patient Visit Report (Discharge Instructions) for additional information. Additional Copies To Joao Monk M.D.; [place] Resident Tracking Resident Involvement: Resident Care Provided Care Provided: Adult Hospital Medicine Reviewed: Pt Seen/Exam by Me History no loose stools no weakness. Constitutional: denies: fever Respiratory: negative: short of breath Cardiovascular: denies chest pain Gastrointestinal/Abdominal: negative: abdominal pain General Appearance: no apparent distress Respiratory: lungs clear, no respiratory distress Cardiovascular: irregularly irregular Gastrointestinal: normal bowel sounds, non tender, soft Neurologic/Psychiatric: alert, oriented x 3 Skin Characteristics: warm/dry Assessment/Plan Resident Physician Supervision Note: I independently interviewed and examined the patient and verified the da silva history and physical, reviewed labs and image studies, discussed the case with the resident Dr. Escalante and agree with the findings and care plan. Time spent in discharge 35min
[2017-08-11 10:37] VITALS: BP 151/64; PULSE 76; TEMP 36.9; O2SAT 97
== END 2017-08-11 12:30 | DRG 699 ==
LOC: C.EDB 12:05 → C.MS2W 18:25 → ENRESERV 18:56
PROVIDERS: ADMIT Family Medicine; ATTEND Family Medicine
DX: T83.518A Infection and inflammatory reaction due to other urinary catheter, initial encounter (principal); N39.0 Urinary tract infection, site not specified; N17.9 Acute kidney failure, unspecified; B96.20 Unspecified Escherichia coli [E. coli] as the cause of diseases classified elsewhere; Z16.19 Resistance to other specified beta lactam antibiotics; Y84.6 Urinary catheterization as the cause of abnormal reaction of the patient, or of later complication, without mention of misadventure at the time of the procedure; R63.0 Anorexia; K52.9 Noninfective gastroenteritis and colitis, unspecified; N31.9 Neuromuscular dysfunction of bladder, unspecified; G89.29 Other chronic pain; R68.84 Jaw pain; I48.91 Unspecified atrial fibrillation; I10 Essential (primary) hypertension; I25.10 Atherosclerotic heart disease of native coronary artery without angina pectoris; K21.9 Gastro-esophageal reflux disease without esophagitis; E78.5 Hyperlipidemia, unspecified; Z85.038 Personal history of other malignant neoplasm of large intestine; Z92.21 Personal history of antineoplastic chemotherapy; Z98.0 Intestinal bypass and anastomosis status; Z90.49 Acquired absence of other specified parts of digestive tract; Z85.3 Personal history of malignant neoplasm of breast; Z85.118 Personal history of other malignant neoplasm of bronchus and lung; I25.2 Old myocardial infarction; Z86.73 Personal history of transient ischemic attack (TIA), and cerebral infarction without residual deficits; Z87.891 Personal history of nicotine dependence; Z79.01 Long term (current) use of anticoagulants; Z79.899 Other long term (current) drug therapy; Z88.0 Allergy status to penicillin; Z88.2 Allergy status to sulfonamides; Z83.3 Family history of diabetes mellitus; Z82.49 Family history of ischemic heart disease and other diseases of the circulatory system

== ENCOUNTER → 2017-08-19 | Outpatient (CLI) | payer OTHER ==
[~2017-08-19] MED LIST changes: -LSN5 PO; -LSX40 PO; +MCRB100 PO
[2017-08-19 15:56] LABS: BASO ABS # 0.05 K/uL (0-0.2); EOS % 2.8 %; HEMATOCRIT 27.9 % (37-47); IG% 0.4 %; LYMPH % 25.7 %; LYMPH ABS # 1.29 K/uL (1.2-3.4); MEAN CELL VOLUME 77.3 fL (80-100); MEAN CORPUSCULAR HEMOGLOBIN 24.1 pg (25-34); MEAN CORPUSCULAR HGB CONC 31.2 g/dl (32-36); MEAN PLATELET VOLUME 9.8 fL (7.4-10.4); MONO % 11.2 %; NEUT % 58.9 %; PLATELET COUNT 189 K/uL (130-400); RED BLOOD COUNT 3.61 M/uL (4.2-5.4); WHITE BLOOD COUNT 5.01 K/uL (4.8-10.8)
[2017-08-19 16:05] LABS: ALT/SGPT 33 U/L (12-78); AST/SGOT 30 U/L (15-37); BLOOD UREA NITROGEN 21 mg/dl (7-18); BUN/CREATININE RATIO 20.2 (10-20); CALCIUM 8.7 mg/dl (8.5-10.1); CARBON DIOXIDE 24 mmol/L (21-32); CHLORIDE 109 mmol/L (98-107); CREATININE 1.04 mg/dl (0.60-1.20); GLUCOSE 77 mg/dl (70-99); MAGNESIUM 1.8 mg/dl (1.8-2.4); POTASSIUM 4.1 mmol/L (3.5-5.1); SODIUM 139 mmol/L (136-145)
[2017-08-19 16:10] LABS: ALB/GLOB RATIO 0.7 (0.9-2); ALKALINE PHOSPHATASE 80 U/L (45-117)
[2017-08-19 16:27] LABS: ANISOCYTOSIS PRESENT; COMPLETE YES; HYPOCHROMIA PRESENT
== END | disposition home or self-care (01) ==
LOC: C.LABSPEC 14:49
PROVIDERS: ATTEND Internal Medicine
DX: I25.10 Atherosclerotic heart disease of native coronary artery without angina pectoris (principal); I12.9 Hypertensive chronic kidney disease with stage 1 through stage 4 chronic kidney disease, or unspecified chronic kidney disease; R60.0 Localized edema; N18.9 Chronic kidney disease, unspecified

== ENCOUNTER → 2017-09-02 | Outpatient (CLI) | payer OTHER ==
[~2017-09-02] MED LIST changes: +DIGO30TA PO; +DOCU-94 PO; +KFL500 PO; +LSX40 PO; +MAGN1TAB15 PO; +OMEP20CA9 PO; +ONDA4TAB10 SL
[2017-09-02 16:11] LABS: BASO % 0.9 %; BASO ABS # 0.05 K/uL (0-0.2); EOS % 1.3 %; EOS ABS # 0.07 K/uL (0-0.5); HEMATOCRIT 28.7 % (37-47); HEMOGLOBIN 8.9 g/dL (12.0-16.0); IG# 0.03 K/uL (0.00-0.02); LYMPH ABS # 1.17 K/uL (1.2-3.4); MEAN CORPUSCULAR HEMOGLOBIN 24.2 pg (25-34); MEAN PLATELET VOLUME 10.3 fL (7.4-10.4); MONO % 12.6 %; MONO ABS # 0.67 K/uL (0.11-0.59); NEUT % 62.6 %; NEUT ABS # 3.34 K/uL (1.4-6.5); NUCLEATED RED BLOOD CELL ABS 0.09 K/uL (0-0); PLATELET COUNT 257 K/uL (130-400); RED CELL DISTRIBUTION WIDTH CV 18.2 % (11.5-14.5); RED CELL DISTRIBUTION WIDTH SD 51.8 fL (36.4-46.3); WHITE BLOOD COUNT 5.33 K/uL (4.8-10.8)
== END | disposition home or self-care (01) ==
LOC: C.LABSPEC 14:52
PROVIDERS: ATTEND Internal Medicine
DX: D64.9 Anemia, unspecified (principal)

== ENCOUNTER → 2017-09-18 | Outpatient (CLI) | payer OTHER ==
[~2017-09-18] MED LIST changes: -DIGO30TA PO; -DOCU-94 PO; -KFL500 PO; -LSX40 PO; -MAGN1TAB15 PO; -OMEP20CA9 PO; -ONDA4TAB10 SL
--- NOTE | 2017-09-21 07:44 | MAMMOGRAPHY REPORT ---
BILATERAL DIGITAL SCREENING MAMMOGRAM TOMOSYNTHESIS WITH CAD: 09/18/2017 CLINICAL HISTORY: Routine screening. Patient has no complaints. TECHNIQUE: Breast tomosynthesis in addition to standard 2D mammography was performed. Current study was also evaluated with a Computer Aided Detection (CAD) system. COMPARISON: Comparison is made to exams dated: 06/26/2016 mammogram, 08/30/2014 mammogram, 3 mammogram, 01/19/2013 mammogram, 07/07/2012 mammogram, and 07/02/2011 mammogram - [facility]. BREAST COMPOSITION: The tissue of both breasts is heterogeneously dense, which may obscure small mas ses. FINDINGS: No suspicious masses, calcifications, or areas of architectural distortion are noted in ei ther breast. There has been no significant interval change compared to prior exams. Bilateral benign -appearing calcifications are not significantly changed. There are stable post treatment changes in the left breast. IMPRESSION: ACR BI-RADS CATEGORY 2: BENIGN There is no mammographic evidence of malignancy. A 1 year screening mammogram is recommended. The pa tient will receive written notification of the results. Approximately 10% of breast cancers are not detected with mammography. A negative mammographic report should not delay biopsy if a clinically suggestive mass is present. Debra Cross M.D. ah/:09/18/2017 15:07:17 Junior Business Analyst: Cady GRIGGS)(M), [facility] letter sent: Normal 1/2 BI-RADS Code: ACR BI-RADS Category 2: Benign
== END | disposition home or self-care (01) ==
LOC: C.MAMM 13:02
PROVIDERS: ATTEND Internal Medicine
DX: Z12.31 Encounter for screening mammogram for malignant neoplasm of breast (principal)

== ENCOUNTER → 2017-12-03 | Outpatient (CLI) | payer OTHER ==
[2017-12-03 17:40] LABS: BASO % 0.8 %; BASO ABS # 0.05 K/uL (0-0.2); EOS % 2.4 %; EOS ABS # 0.15 K/uL (0-0.5); HEMATOCRIT 31.4 % (37-47); HEMOGLOBIN 9.6 g/dL (12.0-16.0); IG# 0.04 K/uL (0.00-0.02); LYMPH ABS # 1.62 K/uL (1.2-3.4); MEAN CELL VOLUME 75.1 fL (80-100); MEAN CORPUSCULAR HGB CONC 30.6 g/dl (32-36); MEAN PLATELET VOLUME 9.8 fL (7.4-10.4); MONO % 12.5 %; MONO ABS # 0.78 K/uL (0.11-0.59); NEUT % 57.7 %; NEUT ABS # 3.58 K/uL (1.4-6.5); PLATELET COUNT 236 K/uL (130-400); RED CELL DISTRIBUTION WIDTH CV 18.2 % (11.5-14.5); RED CELL DISTRIBUTION WIDTH SD 49.9 fL (36.4-46.3); WHITE BLOOD COUNT 6.22 K/uL (4.8-10.8)
[2017-12-03 17:49] LABS: ALBUMIN 3.1 gm/dl (3.4-5.0); ALT/SGPT 19 U/L (12-78); BLOOD UREA NITROGEN 26 mg/dl (7-18); CALCIUM 8.7 mg/dl (8.5-10.1); CARBON DIOXIDE 24 mmol/L (21-32); CREATININE 1.17 mg/dl (0.60-1.20); GLUCOSE 71 mg/dl (70-99); POTASSIUM 3.8 mmol/L (3.5-5.1); SODIUM 136 mmol/L (136-145)
[2017-12-03 17:52] LABS: ALKALINE PHOSPHATASE 84 U/L (45-117); AST/SGOT 25 U/L (15-37); TOTAL PROTEIN 7.8 gm/dl (6.4-8.2)
== END | disposition home or self-care (01) ==
LOC: C.LABSPEC 16:44
PROVIDERS: ATTEND Internal Medicine
DX: D64.9 Anemia, unspecified (principal); I25.10 Atherosclerotic heart disease of native coronary artery without angina pectoris; I48.91 Unspecified atrial fibrillation

== ENCOUNTER 2017-12-29 17:33 | Emergency (ER) | payer OTHER ==
[~2017-12-29] VITALS: Ht 152.4 cm; Wt 42.0 kg
[~2017-12-29 17:33] MED LIST changes: -ISOS60TA25 PO
[2017-12-29 17:36] VITALS: TEMP 36.9; Ht 152.4 cm; Wt 42.0 kg
[2017-12-29] MEDS ORDERED: SODIUM CHLORIDE 0.9% 500ML 500 ML IV STA (17:55)
[2017-12-29 18:09] LABS: BASO % 0.5 %; BASO ABS # 0.03 K/uL (0-0.2); EOS % 1.6 %; EOS ABS # 0.09 K/uL (0-0.5); HEMATOCRIT 31.5 % (37-47); HEMOGLOBIN 9.7 g/dL (12.0-16.0); IG# 0.02 K/uL (0.00-0.02); LYMPH % 23.7 %; LYMPH ABS # 1.32 K/uL (1.2-3.4); MEAN CELL VOLUME 73.9 fL (80-100); MEAN CORPUSCULAR HEMOGLOBIN 22.8 pg (25-34); MEAN CORPUSCULAR HGB CONC 30.8 g/dl (32-36); MEAN PLATELET VOLUME 9.1 fL (7.4-10.4); MONO % 10.9 %; MONO ABS # 0.61 K/uL (0.11-0.59); NEUT % 62.9 %; NEUT ABS # 3.51 K/uL (1.4-6.5); PLATELET COUNT 216 K/uL (130-400); RED CELL DISTRIBUTION WIDTH CV 18.9 % (11.5-14.5); RED CELL DISTRIBUTION WIDTH SD 50.3 fL (36.4-46.3); WHITE BLOOD COUNT 5.58 K/uL (4.8-10.8)
[2017-12-29 18:19] LABS: ISTAT CREATININE 1.5 mg/dl (0.6-1.3); ISTAT IONIZED CALCIUM 1.17 mmol/l (1.12-1.32); ISTAT POTASSIUM 3.9 mEq/L (3.3-5.0)
[2017-12-29 18:19] LABS: ALBUMIN 3.1 gm/dl (3.4-5.0); CALCIUM 8.6 mg/dl (8.5-10.1); CREATININE 1.34 mg/dl (0.60-1.20); POTASSIUM 3.9 mmol/L (3.5-5.1)
[2017-12-29 18:28] LABS: TOTAL PROTEIN 7.7 gm/dl (6.4-8.2)
[2017-12-29] MEDS ORDERED: MAGN1TAB15 PO (18:42)
[2017-12-29] MEDS ORDERED: ONDA4TAB10 SL (18:42)
[2017-12-29] MEDS ORDERED: OMEP20CA9 PO (18:42)
[2017-12-29] MEDS ORDERED: LSX40 PO (18:42)
[2017-12-29] MEDS ORDERED: DIGO30TA PO (18:42)
[2017-12-29] MEDS ORDERED: OPTIRAY 320 IV PRN (19:00)
--- NOTE | 2017-12-29 19:26 | EMERGENCY ROOM VISIT NOTE ---
History Report prepared by Everardo: Marya Larsen Under the Supervision of: Dr. Olegario Barrett M.D. First contact with patient: 17:53 Chief Complaint: ABDOMINAL PAIN Stated Complaint: BAD CRAMPS, PAIN IN THE ABDOMEN History of Present Illness The patient is an 87 year old female who presents to the Emergency Room with complaints of worsening abdominal pain starting 2 hours ago. The patient states that it is a cramping that is similar to her past episodes of bowel obstructions. She notes that her last bowel obstruction was [place] of 2015 or 2016. She states that she has had so many she doesn't remember the number, but notes that each time it passes on its own. She reports that her last bowel movement was this morning and was normal. She notes that she usually vomits when it gets stuck in the adhesions from past abdominal surgeries, but has not this time. The patient notes that her legs are always swollen a little and that she takes Lasix for it. The patient denies diarrhea, straining to move her bowels, nausea, vomiting, fever, chills, cough, congestion, and urinary symptoms. The patient's daughter notes that she is on Pradaxa for A-Fib and hardening arteries of her heart. Source of History: patient, family Onset: 2 hours ago Position: abdomen Quality: cramping, other ("like a bowel obstruction") Timing: worsening Associated Symptoms: No fevers, No chills, No cough, No nausea, No vomiting , No diarrhea, No urinary symptoms Note: The patient denies straining to role player her bowels and congestion. Review of Systems See HPI for pertinent positives and negatives. A total of ten systems were reviewed and were otherwise negative. 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 (19) TIA (transient ischemic attack) (20) UTI (urinary tract infection) Surgical Problems: (1) History of cholecystectomy Family History Diabetes mellitus FH: heart disease Social History Smoking Status: Former Smoker Alcohol Use: none Drug Use: none Marital Status: Housing Status: lives alone Occupation Status: retired Current/Historical Medications Scheduled B-Complex Vitamins (Vitamin B Complex), 1 TAB PO DAILY Dabigatran Etexilate Mesylate (Pradaxa), 75 MG PO BID Digoxin (Digitek), 0.125 MG PO 3XWK Docusate Sodium (Colace), 1 CAP PO BID Furosemide (Furosemide), 40 MG PO QAM Isosorbide Mononitrate Ext Rel (Imdur Ext Rel), 90 MG PO DAILY Magnesium Chloride-Calcium Car (Slow Magnesium Chloride/ 70-117 mg), 3 TABS PO BID Methenamine Hippurate (Methenamine Hippurate), 1 GM PO BID Metoprolol Tartrate (Lopressor) (Lopressor), 50 MG PO BID Multivitamin (Multivitamin), 1 TABLET PO DAILY Omeprazole (Prilosec), 20 MG PO DAILY Scheduled PRN Nitroglycerin (Nitrostat), 0.4 MG UT UD PRN for Chest Pain Ondasetron Odt (Zofran Odt), 4 MG SL Q6H PRN for Nausea Allergies Coded Allergies: Amoxicillin (Verified Allergy, Intermediate, RASH, 08/08/17) TOLERATED ERTAPENEM 08/2015 Sulfa Antibiotics (Verified Allergy, Unknown, unknown, 08/08/17) Homatropine (Verified Adverse Reaction, Mild, NAUSEA, 08/08/17) Hydrocodone (Verified Adverse Reaction, Mild, NAUSEA, 08/08/17) Morphine (Verified Adverse Reaction, Mild, RXN = SIGNIFICANT MS CHANGE WHEN GIVEN WITH PHENERGAN, 08/08/17) PATIENT STATES SHE CAN TAKE MORPHINE LONG NOT COMBINED WITH PHENERGAN. Promethazine (Verified Adverse Reaction, Mild, RXN = SIGNIFICANT MS CHANGES WHEN GIVEN WITH MORPHINE, 08/08/17) SIGNIFICANT MENTAL STATUS CHANGES Lorazepam (Verified Adverse Reaction, Unknown, hallucinations if exceeds prescribed dosage, 08/08/17) Physical Exam Vital Signs Date Time Temp Pulse Resp B/P (MAP) Pulse Ox O2 Delivery O2 Flow Rate FiO2 12/29/17 21:23 72 20 180/81 98 Room Air 12/29/17 20:56 77 20 194/93 97 Room Air 12/29/17 19:32 73 20 165/79 97 Room Air 12/29/17 18:22 75 12/29/17 17:36 36.9 67 20 146/75 96 Room Air Physical Exam GENERAL: Awake, alert, fatigued-appearing, in no distress HENT: Normocephalic, atraumatic. Dry mucus membranes. EYES: Normal conjunctiva. Sclera non-icteric. NECK: Supple. No nuchal rigidity. FROM. No JVD. RESPIRATORY: Clear to auscultation. CARDIAC: Regular rate, normal rhythm. Extremities warm and well perfused. Pulses equal. ABDOMEN: Soft, non-distended. Mild LLQ tenderness to palpation. No peritoneal signs. No rebound or guarding. No masses. RECTAL: Deferred. MUSCULOSKELETAL: Chest examination reveals no tenderness. The back is symmetrical on inspection without obvious abnormality. There is no CVA tenderness to palpation. No joint edema. LOWER EXTREMITIES: Calves are equal size bilaterally and non-tender. 1+ LE edema. No discoloration. NEURO: Normal sensorium. No sensory or motor deficits noted. SKIN: No rash or jaundice noted. Medical Decision & Procedures ER Provider Diagnostic Interpretation: Radiology results as stated below per my review and radiologist interpretation: ABDOMEN AND PELVIS CT WITH IV CONTRAST CT DOSE: 246.66 mGy.cm HISTORY: Acute generalized abdominal pain with history of small bowel obstruction generalized abd pain, h/o sbo TECHNIQUE: Multiaxial CT images of the abdomen and pelvis were performed following the use of intravenous contrast. A dose lowering technique was utilized adhering to the principles of ALARA. COMPARISON STUDY: CT abdomen and pelvis 08/08/2017 FINDINGS: At least moderate enlargement of the imaged inferior cardiac chambers with coronary arterial calcifications. Calcifications of the left ventricular papillary muscles also noted. No pericardial effusion. 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 There is no pneumatosis or pneumoperitoneum identified. Prior cholecystectomy with unchanged mild intrahepatic and extrahepatic biliary ductal dilation, likely physiologic from postcholecystectomy state. Multiple liver cysts are also again noted measuring up to 1.4 cm within the anterior right hepatic lobe. Spleen and adrenal glands are unremarkable. Mild generalized pancreatic atrophy redemonstrated. 1.5 cm low attenuating lesion of the pancreatic body is unchanged suggesting a sidebranch IPMN. Moderate to severe atrophy of the right kidney with multiple bilateral renal cysts. 1.8 cm cystic lesion of the interpolar right kidney demonstrates thin internal septa which may enhance, unchanged. Calcifications within the kidneys bilaterally are again noted suggesting vascular calcifications with renal calculi also in the differential. No ureteral calculi or obstructive uropathy identified. Mild urinary bladder distention with small cystocele. Prior hysterectomy. Mild induration of the pelvic soft tissues redemonstrated. Extensive vascular calcifications are noted throughout. Mild ectasia without aneurysm of the abdominal aorta, 2.5 cm. No bulky adenopathy. Patent portal vein. Postsurgical changes from prior partial sigmoid colon resection. Mild to moderate stool volume throughout the colon. Postoperative changes of the cecum and terminal ileum. Fecal material is noted within several loops of small bowel. Mildly dilated loops of small bowel are again seen within the lower abdomen and pelvis measuring up to 3.4 cm transversely which appears similar to comparison study. No definite transition point identified. Small fat filled right inguinal hernia is unchanged. Soft tissues are unremarkable. The bones appear osteoporotic. Severe multilevel facet arthrosis. Remote appearing compression deformities are seen at L5 and L1, unchanged. IMPRESSION: 1. Mildly dilated loops of small bowel within the right lower abdomen and pelvis are noted along with fecal material within several loops of ileum suggesting decreased small bowel transit. No discrete transition point identified to suggest high-grade small bowel obstruction. 2. Prior cholecystectomy with unchanged mild intrahepatic and extrahepatic biliary ductal dilation. 3. Prior hysterectomy with small cystocele. Mild induration and soft tissue thickening within the distribution of the vaginal cuff appears unchanged. 4. Bibasilar reticular and groundglass opacities suggests NSIP pattern of disease. 5. Additional findings as above. Electronically signed by: Nathaniel Rockwell M.D. 12/29/2017 7:35 PM Dictated Date/Time: 12/29/2017 7:22 PM Laboratory Results 12/29/17 17:53 Red Blood Count 4.26, Mean Corpuscular Volume 73.9, Mean Corpuscular Hemoglobin 22.8, Mean Corpuscular Hemoglobin Concent 30.8, Mean Platelet Volume 9.1, Neutrophils (%) (Auto) 62.9, Lymphocytes (%) (Auto) 23.7, Monocytes (%) (Auto) 10.9, Eosinophils (%) (Auto) 1.6, Basophils (%) (Auto) 0.5, Neutrophils # (Auto ) 3.51, Lymphocytes # (Auto) 1.32, Monocytes # (Auto) 0.61, Eosinophils # (Auto ) 0.09, Basophils # (Auto) 0.03 12/29/17 17:53 Test 12/29/17 17:53 12/29/17 18:05 12/29/17 18:08 12/29/17 19:25 White Blood Count 5.58 K/uL (4.8-10.8) Red Blood Count 4.26 M/uL (4.2-5.4) Hemoglobin 9.7 g/dL (12.0-16.0) Hematocrit 31.5 % (37-47) Mean Corpuscular Volume 73.9 fL (80-100) Mean Corpuscular Hemoglobin 22.8 pg (25-34) Mean Corpuscular Hemoglobin Concent 30.8 g/dl (32-36) Platelet Count 216 K/uL (130-400) Mean Platelet Volume 9.1 fL (7.4-10.4) Neutrophils (%) (Auto) 62.9 % Lymphocytes (%) (Auto) 23.7 % Monocytes (%) (Auto) 10.9 % Eosinophils (%) (Auto) 1.6 % Basophils (%) (Auto) 0.5 % Neutrophils # (Auto) 3.51 K/uL (1.4-6.5) Lymphocytes # (Auto) 1.32 K/uL (1.2-3.4) Monocytes # (Auto) 0.61 K/uL (0.11-0.59) Eosinophils # (Auto) 0.09 K/uL (0-0.5) Basophils # (Auto) 0.03 K/uL (0-0.2) RDW Standard Deviation 50.3 fL (36.4-46.3) RDW Coefficient of Variation 18.9 % (11.5-14.5) Immature Granulocyte % (Auto) 0.4 % Immature Granulocyte # (Auto) 0.02 K/uL (0.00-0.02) Ovalocytes 1+ Est Creatinine Clear Calc Drug Dose 19.2 ml/min Estimated GFR () 40.9 Estimated GFR (Non- 35.3 BUN/Creatinine Ratio 19.1 (10-20) Calcium Level 8.6 mg/dl (8.5-10.1) Total Bilirubin 0.5 mg/dl (0.2-1) Direct Bilirubin 0.1 mg/dl (0-0.2) Aspartate Amino Transf (AST/SGOT) 26 U/L (15-37) Alanine Aminotransferase (ALT/SGPT) 17 U/L (12-78) Alkaline Phosphatase 90 U/L (45-117) Total Protein 7.7 gm/dl (6.4-8.2) Albumin 3.1 gm/dl (3.4-5.0) Lipase 346 U/L (73-393) Bedside Lactic Acid Venous 0.61 mmol/L (0.90-1.70) Bedside Hemoglobin 10.5 g/dl (12.0-16.0) Bedside Hematocrit 31 % (37-47) Bedside Sodium 140 mEq/L (135-144) Bedside Potassium 3.9 mEq/L (3.3-5.0) Bedside Chloride 103 mEq/L (101-112) Bedside Total CO2 26 mEq/l (24-31) Anion Gap 16.0 mmol/L (16-25) Bedside Blood Urea Nitrogen 27 mg/dl (7-18) Bedside Creatinine 1.5 mg/dl (0.6-1.3) Bedside Glucose (other) 90 mg/dl (70-99) Bedside Ionized Calcium (Gume) 1.17 mmol/l (1.12-1.32) Lactic Acid Level 0.8 mmol/L (0.4-2.0) Test 12/29/17 20:00 Urine Color YELLOW Urine Appearance CLEAR (CLEAR) Urine pH 5.0 (4.5-7.5) Urine Specific [place] 1.015 (1.000-1.030) Urine Protein NEG (NEG) Urine Glucose (UA) NEG (NEG) Urine Ketones NEG (NEG) Urine Occult Blood NEG (NEG) Urine Nitrite POS (NEG) Urine Bilirubin NEG (NEG) Urine Urobilinogen NEG (NEG) Urine Leukocyte Esterase MODERATE (NEG) Urine WBC (Auto) >30 /hpf (0-5) Urine RBC (Auto) 0-4 /hpf (0-4) Urine Hyaline Casts (Auto) 0 /lpf (0-5) Urine Epithelial Cells (Auto) 0-5 /lpf (0-5) Urine Bacteria (Auto) 3+ (NEG) Laboratory results reviewed by me Medications Administered Medications (Trade) Dose Ordered Sig/Nicolás Route Start Time Stop Time Status Last Admin Dose Admin Sodium Chloride 500 ml @ 999 mls/hr Q31M STAT IV 12/29/17 17:55 12/29/17 18:25 DC 12/29/17 17:55 999 MLS/HR Metoclopramide HCl (Reglan Inj) 10 mg NOW STAT IV 12/29/17 19:47 12/29/17 19:48 DC 12/29/17 20:11 10 MG Sodium Biphosphate/ Sodium Phosphate (Fleet Enema) 132 ml NOW STAT CO 12/29/17 19:47 12/29/17 19:48 DC 12/29/17 20:11 132 ML ECG Per My Interpretation Indication: abdominal pain Rate (beats per minute): 69 Rhythm: atrial fibrillation Findings: no acute ischemic change, other (LAD) ED Course 1753: The patient was evaluated in room C11B. A complete history and physical exam was performed. 1948: I reevaluated the patient and updated her. We are going to try an enema and some Reglan. She is feeling better. Medical Decision I reviewed the patient's past medical history, medications, and the nursing notes as described above. Differential diagnosis: Etiologies such as appendicitis, diverticulitis, PUD, biliary pathology, UTI, pancreatitis, obstruction, mesenteric ischemia, aortic pathology, infections, inflammatory bowel disease, renal colic, as well as others were entertained. Patient is an 87-year-old woman with a past medical history of prior bowel obstructions managed medically who presents emergency department with abdominal pain which began this afternoon per hpi. On arrival, the patient is fatigued and uncomfortable but no acute distress, afebrile stable vital signs. On exam the patient has mild left lower quadrant tenderness without any peritoneal signs. The patient does have some mild BETO with creatinine 1.3. Labs unremarkable including WBC and lactate within normal limits. CT abdomen pelvis demonstrates stool-filled bowel without any evidence of transition point to suggest obstruction. Question of decreased GI motility. Patient was given Reglan and Fleet enema with that effect and bowel movement with hard balls of stool suggesting likely constipation. Plan for PCP follow-up. Findings and plan for follow-up reviewed with patient. Patient agreeable and d/c'd per discharge instructions. Medication Reconcilliation Current Medication List: was personally reviewed by me Impression Primary Impression: Constipation Scribe Attestation The scribe's documentation has been prepared under my direction and personally reviewed by me in its entirety. I confirm that the note above accurately reflects all work, treatment, procedures, and medical decision making performed by me. Departure Information Dispostion Home / Self-Care Prescriptions Docusate Sodium (COLACE) 100 Mg Cap 1 CAP PO BID for 15 Days, #30 CAP Prov: Olegario Barrett M.D. 12/29/17 Referrals Joao Monk M.D. (PCP) Patient Instructions ED Constipation, ED Dehydration, ED Insufficiency Renal, My [facility] Additional Instructions Please follow up with your primary care physician in the next 1-3 days for re- evaluation and to repeat and monitor your kidney function, which was slightly impaired today likely due to dehydration. Your symptoms are most likely due to constipation likely due to mild dehydration. Otherwise, your exam, EKG, lab results, and CT scan did not show signs of an emergent condition at this time. Colace as needed for constipation. Drink plenty of fluids to ensure hydration. Return to the emergency department for worsening symptoms as described in the accompanying instructions.
--- NOTE | 2017-12-29 19:36 | DIAGNOSTIC IMAGING REPORT ---
ABDOMEN AND PELVIS CT WITH IV CONTRAST CT DOSE: 246.66 mGy.cm HISTORY: Acute generalized abdominal pain with history of small bowel obstruction generalized abd pain, h/o sbo TECHNIQUE: Multiaxial CT images of the abdomen and pelvis were performed following the use of intravenous contrast. A dose lowering technique was utilized adhering to the principles of ALARA. COMPARISON STUDY: CT abdomen and pelvis 08/08/2017 FINDINGS: At least moderate enlargement of the imaged inferior cardiac chambers with coronary arterial calcifications. Calcifications of the left ventricular papillary muscles also noted. No pericardial effusion. 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 There is no pneumatosis or pneumoperitoneum identified. Prior cholecystectomy with unchanged mild intrahepatic and extrahepatic biliary ductal dilation, likely physiologic from postcholecystectomy state. Multiple liver cysts are also again noted measuring up to 1.4 cm within the anterior right hepatic lobe. Spleen and adrenal glands are unremarkable. Mild generalized pancreatic atrophy redemonstrated. 1.5 cm low attenuating lesion of the pancreatic body is unchanged suggesting a sidebranch IPMN. Moderate to severe atrophy of the right kidney with multiple bilateral renal cysts. 1.8 cm cystic lesion of the interpolar right kidney demonstrates thin internal septa which may enhance, unchanged. Calcifications within the kidneys bilaterally are again noted suggesting vascular calcifications with renal calculi also in the differential. No ureteral calculi or obstructive uropathy identified. Mild urinary bladder distention with small cystocele. Prior hysterectomy. Mild induration of the pelvic soft tissues redemonstrated. Extensive vascular calcifications are noted throughout. Mild ectasia without aneurysm of the abdominal aorta, 2.5 cm. No bulky adenopathy. Patent portal vein. Postsurgical changes from prior partial sigmoid colon resection. Mild to moderate stool volume throughout the colon. Postoperative changes of the cecum and terminal ileum. Fecal material is noted within several loops of small bowel. Mildly dilated loops of small bowel are again seen within the lower abdomen and pelvis measuring up to 3.4 cm transversely which appears similar to comparison study. No definite transition point identified. Small fat filled right inguinal hernia is unchanged. Soft tissues are unremarkable. The bones appear osteoporotic. Severe multilevel facet arthrosis. Remote appearing compression deformities are seen at L5 and L1, unchanged. IMPRESSION: 1. Mildly dilated loops of small bowel within the right lower abdomen and pelvis are noted along with fecal material within several loops of ileum suggesting decreased small bowel transit. No discrete transition point identified to suggest high-grade small bowel obstruction. 2. Prior cholecystectomy with unchanged mild intrahepatic and extrahepatic biliary ductal dilation. 3. Prior hysterectomy with small cystocele. Mild induration and soft tissue thickening within the distribution of the vaginal cuff appears unchanged. 4. Bibasilar reticular and groundglass opacities suggests NSIP pattern of disease. 5. Additional findings as above. Electronically signed by: Nathaniel Rockwell M.D. 12/29/2017 7:35 PM Dictated Date/Time: 12/29/2017 7:22 PM
[2017-12-29] MEDS ORDERED: METOCLOPRAMIDE HCL INJ 5 MG/ML 2 ML VIAL IV STA (19:47)
[2017-12-29] MEDS ORDERED: SOD PHOSPHATE/SOD BIPHOSPHATE ENEMA 132 ML BTL PR STA (19:47)
[2017-12-29] MEDS ORDERED: DOCU-94 PO (20:46)
[2017-12-29] MEDS ORDERED: ISOS60TA25 PO (21:09)
[2017-12-29 21:23] VITALS: BP 180/81; PULSE 72; O2SAT 98
--- NOTE | 2017-12-31 11:16 | Pharmacy Progress Note ---
ED Pharmacist Culture FollowUp Date of Service: December 31, 2017. Preliminary urine cx from 12/29/17 is growing ESBL e coli. She had presented to ER w/ c/o abdominal pain x 2 hours. She felt the pain felt similar to past episodes of bowel obstructions. She reported having a normal BM that morning. She denied diarrhea, straining, NV, fever, chill, and urinary symptoms. She was afebrile in the ER, VS were stable. No leukocytosis noted. CT read as mildly dilated loops of sm bowel along w/ fecal material within several loops of ileum suggesting decreased sm bowel transit without a discrete transition point to suggest high-grade bowel obstruction. UA performed that day was: clear, + nitrite, + LE, > 30 WBC and 3+ bacteria (0- 5 epis) Pt was dx with constipation, given Reglan and Fleet enema in ER with results and discharged on Docusate. She was not provided abx for UTI (she denied urinary symptoms). Given pt's renal fxn, nitrofurantoin may not be effective and may lead to higher incidence of toxicities. One tx option may be Fosfomycin PO for this ESBL organism. Reviewed case w/ Dr Benjamin. Plan is to notify Dr Jamison's office of cx results. Offer to treat if Dr Jamison preferred ED f/u with patient. I spoke w/ Casi at Dr Jamison's office who stated she would print-out the cx results and review with Dr Jamison to develop a tx plan. No further action required from ED standpoint.
== END 2017-12-29 21:41 | disposition home or self-care (01) ==
LOC: C.EDB 17:34 → C.EDC 21:41
DX: K59.00 Constipation, unspecified (principal); N17.9 Acute kidney failure, unspecified; Z79.01 Long term (current) use of anticoagulants; I48.91 Unspecified atrial fibrillation; I25.10 Atherosclerotic heart disease of native coronary artery without angina pectoris; D64.9 Anemia, unspecified; Z85.3 Personal history of malignant neoplasm of breast; Z85.038 Personal history of other malignant neoplasm of large intestine; Z85.118 Personal history of other malignant neoplasm of bronchus and lung; E78.00 Pure hypercholesterolemia, unspecified; I10 Essential (primary) hypertension; Z86.73 Personal history of transient ischemic attack (TIA), and cerebral infarction without residual deficits; Z90.49 Acquired absence of other specified parts of digestive tract; Z83.3 Family history of diabetes mellitus; Z87.891 Personal history of nicotine dependence; Z79.899 Other long term (current) drug therapy; Z88.0 Allergy status to penicillin; Z88.2 Allergy status to sulfonamides; Z88.5 Allergy status to narcotic agent; Z88.8 Allergy status to other drugs, medicaments and biological substances

== ENCOUNTER → 2018-01-01 | Outpatient (CLI) | payer OTHER ==
[~2018-01-01] MED LIST changes: +DIGO30TA PO; +DOCU-94 PO; +ISOS60TA25 PO; -LNX125 PO; -LORA-741 PO; +LSX40 PO; +MAGN1TAB15 PO; -MCRB100 PO; +OMEP20CA9 PO; -OMEP40CA41 PO; +ONDA4TAB10 SL; -SLWMEC PO
[2018-01-01 13:22] LABS: BLOOD UREA NITROGEN 23 mg/dl (7-18); CALCIUM 8.8 mg/dl (8.5-10.1); CARBON DIOXIDE 25 mmol/L (21-32); GLUCOSE 82 mg/dl (70-99); POTASSIUM 3.7 mmol/L (3.5-5.1); SODIUM 136 mmol/L (136-145)
== END | disposition home or self-care (01) ==
LOC: C.LABSPEC 12:22
PROVIDERS: ATTEND Internal Medicine
DX: E86.0 Dehydration (principal)

== ENCOUNTER → 2018-04-22 | Outpatient (CLI) | payer OTHER ==
[~2018-04-22] MED LIST changes: -DABI1CAP PO; -DOCU-94 PO
== END | disposition home or self-care (01) ==
LOC: C.LABSPEC 12:41
PROVIDERS: ATTEND Internal Medicine
DX: N39.0 Urinary tract infection, site not specified (principal)